=== PATIENT | female | born 1950 | race Caucasian/White ===

== ENCOUNTER → 2017-09-26 15:52 | Outpatient (CLI) | payer MEDICARE, SELFPAY ==
--- NOTE | 2017-09-26 15:55 | BI_ITS ---
MAMMOGRAPHY - BILATERAL SCREENING REASON FOR EXAM: Female, 66 years old. Routine annual screening examination. PERTINENT HISTORY: Sister with breast cancer. TECHNIQUE: Digital bilateral breast mandy (3D mammographic acquisition) in the CC and MLO projections. 2-D mediolateral oblique (MLO) and craniocaudad (CC) views of both breasts were obtained. CAD: Full Field Digital Mammography with Computer Added Detection was performed. COMPARISON: Comparison is made with prior study dated July 26, 2016 and June 01, 2013. FINDINGS: Breast Composition: The breasts are almost entirely fatty. There are no dominant masses or suspicious calcifications. No other significant abnormalities are identified. There has been no significant change since the prior study. BI/SCREENING MAMM (CAD), BILAT IMPRESSION: Stable bilateral screening mammogram. Yearly follow-up mammogram recommended. (A) ASSESSMENT CATEGORY: BIRADS Category 1: Negative. A letter regarding these results will be sent to the patient by the facility within 30 days. Approximately 10% of breast cancers are not detected by mammography. A normal mammogram should not delay biopsy of a clinically suspicious abnormality. [id number] Electronically Signed: Hi Atkinson MD at 15:37 EDT Tel [phone], Service support ,
== END ==
PROVIDERS: Family Provider Nurse Practitioner; PCP Nurse Practitioner; Visit Provider Nurse Practitioner
DX: Z12.31 Encounter for screening mammogram for malignant neoplasm of breast (principal)
CPT/HCPCS: 77063; 77067

== ENCOUNTER → 2018-01-07 11:03 | Outpatient (CLI) | payer MEDICARE, SELFPAY ==
--- NOTE | 2018-01-07 11:04 | RAD_ITS ---
STUDY: X-RAY - RIGHT SHOULDER REASON FOR EXAM: Female, 67 years old. Pain, injury TECHNIQUE: 3 view(s) of the shoulder. COMPARISON: None. FINDINGS: There is osteoarthritis at the acromioclavicular joint. There is no fracture or dislocation. No osseous destruction. RAD/Shoulder min 2 Views IMPRESSION: Osteoarthritis of the acromioclavicular joint Electronically Signed: Nimesh Kumar MD at 22:05 EDT Tel , Service support ,
== END ==
PROVIDERS: Family Provider Nurse Practitioner; PCP Nurse Practitioner; Visit Provider Orthopaedic Surgery
DX: M19.011 Primary osteoarthritis, right shoulder (principal)
CPT/HCPCS: 73030

== ENCOUNTER → 2018-01-21 10:10 | Outpatient (CLI) | payer MEDICARE, SELFPAY ==
--- NOTE | 2018-01-21 10:12 | MRI_ITS ---
STUDY: MRI RIGHT SHOULDER REASON FOR EXAM: Right shoulder pain and decreased range of motion, recent fall. TECHNIQUE: Standardized fat and water weighted pulse sequences were obtained in all 3 orthogonal planes. COMPARISON: Radiographs 01/07/2018. FINDINGS: There is supraspinatus and infraspinatus tendinosis (T2 sagittal images 11-14) without discrete tendon tear. There is a full-thickness tear of the subscapularis tendon retracted approximately 1.1 cm from the lesser tuberosity (T2 axial images 11-14). Normal teres minor tendon. Normal supraspinatus muscle. There is mild atrophy with mild partial fat replacement of the infraspinatus muscle (T2 sagittal images 3-6). Normal subscapularis muscle. Normal teres minor muscle. There is a small glenohumeral joint effusion with fluid extending into the bicipital tendon sheath. Normal humeral head and visualized proximal humerus. Normal biceps labral complex. Normal intracapsular long biceps tendon. Normal labrum. Normal capsulo- ligamentous complex. There is acromioclavicular arthrosis (T2 sagittal image 9). There is a Type I morphology (flat undersurface), with a neutral orientation. There is a small volume of subacromial-subdeltoid bursal fluid. Normal visualized coracohumeral and coracoacromial ligaments. Normal deltoid muscle. Normal trapezius muscle. MRI/Upper Ext Joint Only(Routine) IMPRESSION: Full-thickness tear of the subscapularis tendon. Supraspinatus and infraspinatus tendinosis. Mild atrophy of the infraspinatus muscle. Acromioclavicular arthrosis. Glenohumeral joint fluid communicating with the subacromial-subdeltoid bursa. Electronically Signed: Inderjit Merchant MD at 12:47 EDT Tel , Service support ,
== END ==
PROVIDERS: Family Provider Nurse Practitioner; PCP Nurse Practitioner; Visit Provider Orthopaedic Surgery
DX: M75.101 Unspecified rotator cuff tear or rupture of right shoulder, not specified as traumatic (principal)
CPT/HCPCS: 73221

== ENCOUNTER 2018-03-27 05:57 | Day surgery (SDC) | payer MEDICARE, SELFPAY ==
[2018-03-27] VITALS (7 sets, daily range): BP systolic 109–143; BP diastolic 63–78; PULSE 57–69; RESP 16–20; TEMP 35.7–36.1; O2SAT 89–100; BMI 53.5
--- NOTE | 2018-03-27 06:06 | EKG12_ITS ---
Test Reason : PREOP Blood Pressure : / mmHG Vent. Rate : 064 BPM Atrial Rate : 064 BPM P-R Int : 184 ms QRS Dur : 072 ms QT Int : 400 ms P-R-T Axes : 033 -25 003 degrees QTc Int : 412 ms Normal sinus rhythm Low voltage QRS Inferior infarct , age undetermined Abnormal ECG When compared with ECG of 10-DEC-2006 08:35, MANUAL COMPARISON REQUIRED, DATA IS UNCONFIRMED Confirmed by NICOLE PAYNE, HERMAN ([id number]), manager editorial ASHLEY EARL ([id number]) on 03/31/2018 4:10:30 PM Referred By: Dottie Etienne Confirmed By:HERMAN RIVERA MD
[2018-03-27 06:31] LABS: Hematocrit 42.8 % (37-47); Hemoglobin 15.1 g/dl (12.0-15.0); Mean Corp Hgb Conc 35.3 g/gl (32-36); Mean Corpuscular Hgb 31.5 pg (27.0-32.0); Mean Corpuscular Volume 89.2 fL (81-99); Platelet Count 278 K/mm3 (150-450); RBC Distribution Width CV 12.5 % (11.6-14.6); RBC Distribution Width SD 40.1 fl (35.1-43.9); Scan Indicated on CBC? Y/N NO; White Blood Count 8.7 K/mm3 (4.4-11.0)
[2018-03-27 06:49] LABS: International Normalized Ratio 1.1
[2018-03-27] MEDS: Cefazolin 2 GM in 0.9% Normal Saline 100 ML IV (07:23)
--- NOTE | 2018-03-27 07:40 | DCINST_ITS ---
Discharge Diet: No Restrictions - right shoulder in sling at all times, no active elevation of arm, may flex the elbow, may remove dressings in 4 days and apply bandaids to incision sites and get incision wet at that time, follow up in 2 weeks, call with concerns Discharge Activity: May Not Drive May shower in (days): 1 Ice area for (Minutes): 20 - Every hour while awake. Weight Bearing Status: Weight bearing as tolerated Keep extremity elevated above heart level: Operative Extremity Call your doctor if your incision/area has: Continuous Slow Oozing, Sudden Increased Bleeding, Increased Pain/ Swelling, Increased Redness, Foul Smelling Discharge Call your doctor if you observe: Fever of 101 or Higher, Coldness, Increased Pain, Numbness or Tingling, Change in Color, Calf discomfort Allergies/Adverse Reactions: Allergies egg Allergy (Verified 03/20/18 13:53) Nausea nitrofurantoin macrocrystalline [From Macrodantin] Allergy (Verified 03/20/18 13:53) Other TACHYCARDIA Penicillins [PCN] Allergy (Verified 03/20/18 13:53) Rash Medications to take at Discharge Atenolol 25 mg PO DAILY 02/25/15 Bupropion HCl [Bupropion HCl Sr] 150 mg PO BID 02/25/15 Famotidine 40 mg PO BID 02/25/15 Hydrocodone/Acetaminophen [Vicodin 5-300 mg Tablet] 1 tablet PO Q4H PRN PRN 02/25/15 Losartan Potassium 100 mg PO DAILY 02/25/15 Warfarin Sodium 6 mg PO SUTUTHSA 02/25/15 rosuvastatin 5 mg tablet 5 mg PO DAILY 30 Days #30 03/06/18 Warfarin [Coumadin ([facility])] 5.5 mg PO MOWEFR 03/20/18 Hydrocodone Bitart/Apap 5-325 [[place] 5MG-325MG] 1 - 2 tablet PO Q6H PRN PRN 5 Days #40 tablet 03/27/18 Zolpidem Tartrate [Ambien (Generic)] 5 mg PO QHS PRN PRN #14 tablet 03/27/18 The following prescriptions were given: Hydrocodone Bitart/Apap 5-325 [[place] 5MG-325MG] 1 - 2 tablet PO Q6H PRN PRN 5 Days #40 tablet PRN Reason: Pain Zolpidem Tartrate [Ambien (Generic)] 5 mg PO QHS PRN PRN #14 tablet PRN Reason: Insomnia Primary Care Physician: Cynthia Campbell [Primary Care Provider] - Test Results: Test results from this visit will be discussed in further detail at your follow- up appointment, if applicable. Please Follow Up With: Dottie Etienne, DO - [phone]
[2018-03-27] MEDS: Mupirocin Ointment 22gm Tube 1 APPLIC (10:46)
--- NOTE | 2018-03-27 10:47 | PCM.OPRPT ---
Report of Operation Date of Procedure: 03/27/18 Pre-Operative Diagnosis: right shoulder rotator cuff tear, subacromial impingment, biceps tendinosis Post-Operative Diagnosis: same Surgery/Procedure Performed:: sars, biceps tenotomy, subacromial decompression/acromioplasty, subscap repair and marginal convergence rotator cuff repair of midsubstance supraspinatus tear Type of Anesthesia:: General Anesthesiologist: Sukhdev Avelar Estimated Blood Loss (mL): minimal Fluids Replaced: 1200cc lr Description of Procedure: Preop note Patient is a 67-year-old female with right shoulder pain continued for quite some time after slipping and injuring her arm. Increased pain goes into the arm MRI confirms a full-thickness rotator cuff tear. Wrist benefits alternatives surgery discussed with patient. Risks including but not limited to blood loss, blood clot, infection, neurovascular, failure procedure, loss of life and loss of limb. Patient is felt failed conservative treatment like to proceed with right shoulder arthroscopy repair is indicated. Operative note Patient seen and examined preoperative holding area. Right shoulder was marked. Patient brought to the operating room placed supine on the operating table. Sign, anesthesia, antibiotics were administered. The right shoulder was prepped and draped in usual sterile fashion after beachchair positioning was placed. Please note that senior care through beachchair position we did recheck her blood pressure which was stable throughout. SCDs were placed on her bilateral lower extremity and gel pad was placed underneath her heels all bony possible padded. We then marked out our incision for our standard diagnostic arthroscopy. Timeout was performed. We then insufflated the glenohumeral joint with 60 cc of saline we did have a difficult time initially encountering her joint due to her body habitus. We did however get into the joint were able to visualize the thickened biceps and torn biceps tendon. We then inserted a ablator to resect the thickened biceps. There are no loose bodies in the joint the glenoid joint glenohumeral joint was unremarkable. There is obvious mid substance full-thickness tear of the supraspinatus the leading edge. Patient also had a subscap tear. We then gently released the subscap from the capsule as it was adherent and had good mobility of the subscap and then brought the subscap back down to the lesser after with a 4 5 push lock after debriding the lesser tuberosity insertion. We then moved to the subacromial space created a couple of portals both anterior lateral and lateral we then performed a subacromial decompression and acromioplasty. We then noted because it was a intrasubstance supraspinatus tear that we placed 3 marginal convergence stitches and had good reduction of our rotator cuff back to the interval. The shoulder was then irrigated comes amounts of sterile saline. The portals were closed with interrupted nylon some of the bigger portals were closed with deep Vicryl in a nylon. Again sterile dressings were applied patient placed in sling patient tolerated procedure well there are no complications transferred recovery room in stable condition. Postoperative note Nonweightbearing right arm next Discussed with daughter Follow-up in 2 weeks Pendulums only no active range of motion of shoulder Call with increased pain numbness tingling or further issues arise Pharmacy in [facility] has prescriptions as Dragon disclaimer This note was generated with [employer] dictation software. It may contain incorrect words, spelling, and punctuation that were not noted in checking the note before signing.
--- NOTE | 2018-03-27 10:54 | OP.PCM_ITS ---
Report of Operation Date of Procedure: 03/27/18 Pre-Operative Diagnosis: right shoulder rotator cuff tear, subacromial imp ingment, biceps tendinosis Post-Operative Diagnosis: same Surgery/Procedure Performed:: sars, biceps tenotomy, subacromial decompression/acromioplasty, subscap repair and marginal convergence rotator cuff repair of midsubstance supraspinatus tear Type of Anesthesia:: General Anesthesiologist: Sukhdev Avelar Estimated Blood Loss (mL): minimal Fluids Replaced: 1200cc lr Description of Procedure: Preop note Patient is a 67-year-old female with right shoulder pain continued for quite some time after slipping and injuring her arm. Increased pain goes into the arm MRI confirms a full-thickness rotator cuff tear. Wrist benefits alternatives surgery discussed with patient. Risks including but not limited to blood loss, blood clot, infection, neurovascular, failure procedure, loss of life and loss of limb. Patient is felt failed conservative treatment like to proceed with right shoulder arthroscopy repair is indicated. Operative note Patient seen and examined preoperative holding area. Right shoulder was marked. Patient brought to the operating room placed supine on the operating table. Sign, anesthesia, antibiotics were administered. The right shoulder was prepped and draped in usual sterile fashion after beachchair positioning was placed. Please note that skilled nursing through beachchair position we did recheck her blood pressure which was stable throughout. SCDs were placed on her bilateral lower extremity and gel pad was placed underneath her heels all bony possible padded. We then marked out our incision for our standard diagnostic arthroscopy. Timeout was performed. We then insufflated the glenohumeral joint with 60 cc of saline we did have a difficult time initially encountering her joint due to her body habitus. We did however get into the joint were able to visualize the thickened biceps and torn biceps tendon. We then inserted a ablator to resect the thickened biceps. There are no loose bodies in the joint the glenoid joint glenohumeral joint was unremarkable. There is obvious mid substance full- thickness tear of the supraspinatus the leading edge. Patient also had a subscap tear. We then gently released the subscap from the capsule as it was adherent and had good mobility of the subscap and then brought the subscap back down to the lesser after with a 4 5 push lock after debriding the lesser tuberosity insertion. We then moved to the subacromial space created a couple of portals both anterior lateral and lateral we then performed a subacromial decompression and acromioplasty. We then noted because it was a intrasubstance supraspinatus tear that we placed 3 marginal convergence stitches and had good reduction of our rotator cuff back to the interval. The shoulder was then irrigated comes amounts of sterile saline. The portals were closed with interrupted nylon some of the bigger portals were closed with deep Vicryl in a nylon. Again sterile dressings were applied patient placed in sling patient tolerated procedure well there are no complications transferred recovery room in stable condition. Postoperative note Nonweightbearing right arm next Discussed with daughter Follow-up in 2 weeks Pendulums only no active range of motion of shoulder Call with increased pain numbness tingling or further issues arise Pharmacy in [facility] has prescriptions as Dragon disclaimer This note was generated with [employer] dictation software. It may contain incorrect words, spelling, and punctuation that were not noted in checking the note before signing.
[2018-03-27] MEDS: Bupiv/Epi 0.5% Mpf 30 ML Vial (11:03)
[2018-03-27] MEDS: HYDROcodone Bitartrate/Apap 5/325 Tablet PO (12:35)
== END 2018-03-27 14:06 | disposition home or self-care (01) ==
LOC: SDC 05:57 → AC 05:59
PROVIDERS: Family Provider Nurse Practitioner; PCP Nurse Practitioner; Referring Provider Orthopaedic Surgery; Visit Provider Orthopaedic Surgery
PROC: (CPT 29827; principal; 2018-03-27 07:10)
DX: S46.011A Strain of muscle(s) and tendon(s) of the rotator cuff of right shoulder, initial encounter (principal); W01.0XXA Fall on same level from slipping, tripping and stumbling without subsequent striking against object, initial encounter; M25.811 Other specified joint disorders, right shoulder; M75.21 Bicipital tendinitis, right shoulder; I10 Essential (primary) hypertension; E78.00 Pure hypercholesterolemia, unspecified; K21.9 Gastro-esophageal reflux disease without esophagitis; F33.8 Other recurrent depressive disorders; G47.33 Obstructive sleep apnea (adult) (pediatric); Z86.718 Personal history of other venous thrombosis and embolism; Z79.01 Long term (current) use of anticoagulants; Z79.891 Long term (current) use of opiate analgesic; Z79.899 Other long term (current) drug therapy; Z87.891 Personal history of nicotine dependence
CPT/HCPCS: 29826; 29827; 29828; 36415; 85027; 85610; 93005; J7120; J2405

== ENCOUNTER 2018-07-31 11:00 | Outpatient (RCR) | payer MEDICARE, SELFPAY ==
--- NOTE | 2018-04-14 09:23 | HP.PTEVAL_ITS ---
Patient's Visit Information KATHERINE MATHIS is a 67 year old F referred to Physical Therapy by Dottie Etienne DO with a diagnosis of Massive Right RTC Repair (03/24/18). Date of Evaluation: 04/14/18 Physical Therapist: Debbie Patino - Visit Plan Frequency: 2x /Week Duration: 4 Weeks Plan: SLOW!!!- Massive RTC repair- PROM for 6 weeks (until May 08) and modalities for pain management. - Subjective Subjective: March 27, 2018-left shoulder surgery- fell December 02- tore the RTC in 3 places. Had no external injuries when she fell but she landed on the shoulder. Went home the same day as surgery- Worst pain is a 8/10 Agg:movement, getting dressed. Best: 0/10 Eases: being in her sling. The pain is located mostly now is anterior deltoid and biceps. Describes the pain as the shoulder is being pulled to far in the wrong direction. No N/T in the finger. No increase in blurred vision or FOSTER- does have vertigo occasionally but since the surgery. Does have bouts of nasea- is not taking pain medication currently. Sleep: disturbed- has been sleeping in her left chair- might get 2 hours of sleep and then she moves from the bed to the chair. Fully I before surgery. Patient reports that she is not very active. Has 3 boys that live with them hockey players (16-23)- she is constantly taking care of them- bathroom is upstairs. PMHx: Bilateral TKR, HTN, Pre DM, a-factor blood clots, back pain, sleep apnea. Meds: see list- no changes since hospitalization. Right hand dominate. - Objective Posture: FH, RS, Increased kyphosis- severe guarding of the right UE with a pillow sling. Gait: slow with decreased arm swing and no trunk rotation. Observation: pt is overweight. Palpation: tender along upper trap, medial border of the shoulder blade, bicipital groove and down to the elbow. ROM: Finger dexterity: WNL, Pronation/Supination:WNL, Elbow flexion/ext: WNL. PROM: shoulder: significant guarding of the UE- unable to perform- attempted pendulums and patient was able to relax and demo approx 30 degrees of flexion with passive distraction. Strength: not tested. Patient has significant pain with all motions and is very guarded- will go SLOW! - Goals Goal 1:: Patient will be I with HEP and progression Goal Time Frame: 4-6 Weeks Goal 2:: Patient will demo full AROM in right shoulder where deficit (as per protcol) Goal Time Frame: 4-6 Weeks Goal 3:: Patient will reports 2/10 pain for 1 week Goal Time Frame: 4-6 Weeks - Rehabilitation Potential Physical Therapy Diagnosis: Patient presents with hypomobility- she has decreased ROM, strength and muscular endurance s/p RTC repair. Rehabilitation Potential: Fair - Anticipated Interventions Patient/Client Instruction: Educate patient on: Benefits of Fitness Program Therapeutic Exercise to Include: Strength training, Endurance training, Body mechanics, Postural training, Passive ROM, Active ROM, Scapular Strength/Stabil ization For the Purpose of:: To increase ROM, To improve muscle performance and motor function Manual Therapy Techniques to Include: Passive ROM For the Purpose of:: To increase ROM TENS: Yes Cryotherapy (ice pack, ice massage): Yes Thermo therapy (hot pack): Yes For the Purpose of:: To decrease pain Thank you for the opportunity to evaluate your patient. For Medicare and Medicare HMO plans, please review the plan of care and approve it. It will need to be FAXED BACK to us at [phone] for Medicare purposes. Please let me know if there are questions or concerns regarding this plan of care. Physician Signature: Date:
--- NOTE | 2018-05-15 11:47 | HP.PTREVAL_ITS ---
Dottie Etienne, DO, It has been my pleasure to treat KATHERINE MATHIS over the last 8 visits for Massive Right RTC Repair (03/24/18). Please see the progress note below for an update on the physical therapy plan of care! Subjective: Patient reports that she saw the MD and he was happy with the progress and told her to keep doing therapy. He took her out of the sling. She reports less pain with the sling off. Is able to do more cooking and around her house. Pain depends on what she is doing. Worst: 2/10 with normal activites 7/10 with therapy exercises. Is doing pulleys at home daily- almost like a certain point that catches in the arm. Objective/Function: Posture: FH, RS, increased kyphosis- pt guards the right UE but is no longer wearing the sling. Palpation: tender along medial scapula with pain into the upper trap to the bicipital groove. ROM: Finger dexterity: WNL, Wrist: WNL, Elbow: WNL, AROM: Abd: 40 degrees Flexion: 50 degrees IR: greater troch, ER: 30 degrees, AAROM (pulleys): flexion: 120 degrees- passive not performed secondary to guarding. Strength: isometric: Elbow: 4+/5, Shoulder: 3+ /5 in available range at neutral Plan Plan: Cont with POC 2x a week for 4 weeks- continue to progress with AAROM exercises and add in gentle isometrics Goals Goal 1:: Patient will be I with HEP and progression Goal Time Frame: 4-6 Weeks Goal Progress: Progressing Goal 2:: Patient will demo full AROM in right shoulder where deficit (as per protcol) Goal Time Frame: 4-6 Weeks Goal Progress: Progressing Goal 3:: Patient will reports 2/10 pain for 1 week Goal Time Frame: 4-6 Weeks Goal Progress: Progressing Anticipated Interventions Patient/Client Instruction: Educate patient on: Benefits of Fitness Program Therapeutic Exercise to Include: Strength training, Endurance training, Coordination, Body mechanics, Postural training, Passive ROM, Active ROM, Scapular Strength/Stabilization For the Purpose of:: To increase ROM, To improve muscle performance and motor function Manual Therapy Techniques to Include: Passive ROM For the Purpose of:: To increase ROM TENS: Yes Cryotherapy (ice pack, ice massage): Yes Thermo therapy (hot pack): Yes For the Purpose of:: To decrease pain Please do not hesitate to contact me at [phone] by phone or if you have questions or concerns regarding this new plan of care! Sincerely, Debbie Patino
--- NOTE | 2018-06-26 14:56 | HP.PTREVAL ---
Dottie Etienne, DO, It has been my pleasure to treat KATHERINE MATHIS over the last 14 visits for Massive Right RTC Repair (03/24/18). Please see the progress note below for an update on the physical therapy plan of care! Subjective: The shoulder is doing pretty good- the weather does effect the pain. But since then its been about a week or a week and a half since she has had a lot of pain. She doesn't have the strength in it- but feels like the ROM is getting better. Putting things on behind her back is a challenge. Objective/Function: Posture: FH, RS, increased kyphosis- no guarding of the right UE Palpation: tender along medial scapula with pain into the upper trap to the bicipital groove. ROM: Finger dexterity: WNL, Wrist: WNL, Elbow: WNL, AROM: Abd: 115 degrees Flexion: 130 degrees IR: outside of her back pocket, ER: 50 degrees, Strength: isometric: Elbow: 4+/5, Shoulder: 3+/5 in available range at neutral Plan Plan: Continue 2x a week for 4 weeks for strength training Goals Goal 1:: Patient will be I with HEP and progression Goal Time Frame: 4-6 Weeks Goal Progress: Progressing Goal 2:: Patient will demo full AROM in right shoulder where deficit (as per protcol) Goal Time Frame: 4-6 Weeks Goal Progress: Progressing Goal 3:: Patient will reports 2/10 pain for 1 week Goal Time Frame: 4-6 Weeks Goal Progress: Progressing Anticipated Interventions Patient/Client Instruction: Educate patient on: Benefits of Fitness Program Therapeutic Exercise to Include: Strength training, Endurance training, Coordination, Body mechanics, Postural training, Passive ROM, Active ROM, Scapular Strength/Stabilization For the Purpose of:: To increase ROM, To improve muscle performance and motor function Manual Therapy Techniques to Include: Passive ROM For the Purpose of:: To increase ROM TENS: Yes Cryotherapy (ice pack, ice massage): Yes Thermo therapy (hot pack): Yes For the Purpose of:: To decrease pain Please do not hesitate to contact me at [phone] by phone or if you have questions or concerns regarding this new plan of care! Sincerely, Debbie Patino DPT
--- NOTE | 2018-09-18 16:48 | HP.PTDCNRP_ITS ---
HP - Discharge Summary (1) - Patient Information KATHERINE MATHIS was seen in my office for initial evaluation on 04/14/18. The following Plan of Care was established for this patient: Initial Frequency: 2x /Week Initial Duration: 4 Weeks - Anticipated Interventions Patient/Client Instruction: Educate patient on: Benefits of Fitness Program Therapeutic Exercise to Include: Strength training, Endurance training, Circle Edger rdination, Body mechanics, Postural training, Passive ROM, Active ROM, Scapular Strength/Stabilization For the Purpose of:: To increase ROM, To improve muscle performance and motor function Manual Therapy Techniques to Include: Passive ROM For the Purpose of:: To increase ROM TENS: Yes Cryotherapy (ice pack, ice massage): Yes Thermo therapy (hot pack): Yes For the Purpose of:: To decrease pain This patient was last seen in our office . Pertinent comments regarding their Physical therapy will appear below: Patient made excellent progress in therapy and is I with HEP. At this point I will be discontinuing this patient from physical therapy. I would be happy to see this patient again in the future if found appropriate by the physician. Thank you! Debbie Patino DPT
== END 2018-07-31 19:00 | disposition home or self-care (01) ==
LOC: PT 11:00
PROVIDERS: Family Provider Nurse Practitioner; PCP Nurse Practitioner; Referring Provider Orthopaedic Surgery; Visit Provider Orthopaedic Surgery
DX: Z98.890 Other specified postprocedural states (principal)
CPT/HCPCS: 97110; 97140; 97161; 97164

== ENCOUNTER → 2018-10-14 15:50 | Outpatient (CLI) | payer MEDICARE, SELFPAY ==
--- NOTE | 2018-10-14 15:56 | RAD_ITS ---
HISTORY: low back pain with history of previous lumbar spine facet joint injection COMPARISON: Limited Lumbar spine with C-arm fluoroscopy 05/02/2015 FINDINGS: XR lumbar spine 5 views Lumbar mild levoscoliosis which measures approximately 13 with the apex of the curve at the L2 level. Lumbar vertebral appear normal in height. No fracture or acute osseous abnormality. Diffuse narrowing of the lumbar disc spaces, greatest at the L1-2, L2-3, and L5-S1 levels. Multilevel marginal endplate spurring, degenerative vacuum disc phenomenon, and reactive endplate sclerosis. Long segment marginal osteophytosis of the lower dorsal and upper lumbar spine as seen with benign changes of DISH. L5-S1 facet joint arthritis, worse on the left. No spondylolisthesis. SI joints are grossly preserved. Numerous pelvic phleboliths. Several stones measuring approximately 9 mm and 7 mm in maximal dimension, respectively, at the lower pole of the left kidney. Atherosclerotic abdominal aorta. RAD/L/S Spine Min 4 Views IMPRESSION: 1. No fracture or acute osseous abnormality. 2. Lumbar spine mild scoliosis and multilevel spondylosis and advanced degenerative disc disease. L5-S1 facet joint arthritis on the left. 3. At least 2 left renal stones and these are a potential source for reported low back pain. 4. Additional chronic changes, as above. at 0103 Reported and signed by: Vincenzo Price MD Electronically Signed: Vincenzo Price, at 1:02 EDT Tel , Service support ,
== END ==
PROVIDERS: Family Provider Nurse Practitioner; PCP Nurse Practitioner; Referring Provider Anesthesiology Pain Medicine; Visit Provider Anesthesiology Pain Medicine
DX: M51.37 Other intervertebral disc degeneration, lumbosacral region (principal); M43.16 Spondylolisthesis, lumbar region
CPT/HCPCS: 72110

== ENCOUNTER 2018-11-03 08:01 | Day surgery (SDC) | payer MEDICARE, SELFPAY ==
[2018-11-03] VITALS (7 sets, daily range): BP systolic 112–136; BP diastolic 57–74; PULSE 64–66; RESP 16–18; TEMP 36.1–36.3; O2SAT 98–100; BMI 55.8
[2018-11-03 08:50] LABS: Prothrombin Time Fingerstick 11.9 SEC (11.9-14.4)
--- NOTE | 2018-11-03 09:10 | RAD_ITS ---
PROCEDURE: Right L3-S1 facet joint block. DATE OF EXAMINATION: November 03, 2018. INDICATION: Female, 67 years old. Chronic low back pain. FLUOROSCOPY TIME (if supplied): (0:18) minutes/seconds Intraoperative imaging provided for right L3-S1 facet joint block. RAD/L/S Spine Min 4 Views IMPRESSION: Intraoperative imaging provided for right L3-S1 facet joint block. Electronically Signed: Hi Atkinson, at 15:04 EDT , Service support ,
[2018-11-03] MEDS: Bupivacaine 0.25% 30 ML Vial (09:22)
[2018-11-03] MEDS: MethylPREDNISolone Acetate 80 MG/ML Vial (09:22)
--- NOTE | 2018-11-03 13:53 | OP.PCM_ITS ---
Problem List (1) Degeneration of lumbar or lumbosacral intervertebral disc Status: Chronic (2) Spondylosis of lumbosacral region without myelopathy or radiculopathy Status: Chronic Report of Operation Date of Procedure: 11/03/18 Pre-Operative Diagnosis: Lumbosacral spondylosis, lumbosacral degenerative disc disease, lumbar facet arthropathy Post-Operative Diagnosis: Lumbosacral spondylosis, lumbosacral degenerative disc disease, lumbar facet arthropathy Surgery/Procedure Performed:: Right sided lumbar facet steroid injection L3, L4, L5, S1 Description of Surgical Findings:: Right-sided lumbar facet steroid injection L3, L4, L5, S1 PREOPERATIVE DIAGNOSIS: Lumbosacral spondylosis, lumbosacral degenerative disc disease, and lumbar facet arthropathy POSTOPERATIVE DIAGNOSIS: Lumbosacral spondylosis, lumbosacral degenerative disc disease, and lumbar facet arthropathy ANESTHESIA: MAC COMPLICATIONS: None BLOOD LOSS: Minimal PROCEDURE IN DETAIL: History and physical today was reviewed. Risks and benefits of the procedure were explained. The patient understood, agreed to our procedure, and informed consent was obtained. IV inserted per routine protocol. The patient was taken to the operating room, placed in a prone position with a pillow positioned underneath the abdomen. The right side of the lower back was prepped and draped in a sterile fashion using iodine x3. Under fluoroscopy guidance, on AP view, L3 through S1 vertebral bodies were visualized. Skin and subcutaneous tissues were anesthetized with approximately 5 mL of 1% lidocaine using a 25-gauge regular needle. Under direct visualization with fluoroscopy at approximately 25-degree angle, starting on the right L3, ending on the right S1, passing through the L4-L5 using a 22-gauge 5 inch spinal needle, the needle was advanced via the skin. The tip of the needle was maneuvered and directed towards the superior and medial gutter of the transverse process at the vicinity of the medial branch. Once the tip of the needle was in contact with the bone, the needle pulled approximately 2 mm off the bone. After negative aspiration of blood with CSF and confirmation of AP as well as oblique view, a total of 8 mL of preservative-free 0.25% Marcaine with 80 mg of Depo- Medrol was injection in divided doses between those 4 levels. The needles were then removed intact. The patient experienced no signs or symptoms intrathecal, intravascular injection. The patient experienced no paraesthesia. The procedure was completed without any apparent difficult, any complication. The patient appeared to tolerate well. ASSESSMENT AND PLAN: This is a 67-year-old Female with Lumbosacral spondylosis, lumbosacral degenerative disc disease, and lumbar facet arthropathy, status post right-sided lumbar facet steroid injection L3 through S1. The patient will continue her current medications. The patient will follow in approximately 2 weeks for reevaluation.
== END 2018-11-03 10:43 | disposition home or self-care (01) ==
LOC: SDC 08:02 → AC 08:05
PROVIDERS: Family Provider Nurse Practitioner; PCP Nurse Practitioner; Referring Provider Anesthesiology Pain Medicine; Visit Provider Anesthesiology Pain Medicine
PROC: 3E0T3BZ Introduction of Anesthetic Agent into Peripheral Nerves and Plexi, Percutaneous Approach (ICD-10-PCS; CPT 64493; principal; 2018-11-03 09:05)
DX: M47.817 Spondylosis without myelopathy or radiculopathy, lumbosacral region (principal); M51.37 Other intervertebral disc degeneration, lumbosacral region; M46.96 Unspecified inflammatory spondylopathy, lumbar region; K21.9 Gastro-esophageal reflux disease without esophagitis; E78.00 Pure hypercholesterolemia, unspecified; F32.9 Major depressive disorder, single episode, unspecified; I10 Essential (primary) hypertension; E66.01 Morbid (severe) obesity due to excess calories; Z68.43 Body mass index [BMI] 50.0-59.9, adult; Z79.01 Long term (current) use of anticoagulants; Z79.891 Long term (current) use of opiate analgesic; Z86.718 Personal history of other venous thrombosis and embolism; Z79.899 Other long term (current) drug therapy; Z87.891 Personal history of nicotine dependence
CPT/HCPCS: 01922; 64493; 64494; 64495; 36416; 64483; 72110; 85610; J7120

== ENCOUNTER 2018-12-01 08:53 | Day surgery (SDC) | payer MEDICARE, SELFPAY ==
[2018-11-03 08:23] VITALS: BMI 55.8
[2018-12-01 09:21] LABS: Prothrombin Time Fingerstick 12.5 SEC (11.9-14.4)
[2018-12-01 09:26] VITALS: BP 113/75; PULSE 68; RESP 16; TEMP 36.4; O2SAT 96; BMI 56.8
--- NOTE | 2018-12-01 10:20 | RAD_ITS ---
PROCEDURE: Caudal block. DATE OF EXAMINATION: December 01, 2018. INDICATION: Female, 68 years old. Chronic low back pain. FLUOROSCOPY TIME (if supplied): (0:15) minutes/seconds. 2 spot views were obtained. RAD/Fluor Guidance for Spine Inj IMPRESSION: Intraoperative imaging provided for caudal block. Electronically Signed: Hi Atkinson, at 13:16 EDT , Service support ,
[2018-12-01] MEDS: Bupivacaine 0.25% 30 ML Vial (10:40)
[2018-12-01] MEDS: MethylPREDNISolone Acetate 80 MG/ML Vial (10:40)
[2018-12-01 10:45] VITALS: BP 111/90; BP 113/75; PULSE 68; RESP 14; TEMP 37.1; O2SAT 96
[2018-12-01 10:50] VITALS: BP 113/75; BP 116/79; PULSE 69; RESP 18; O2SAT 98
[2018-12-01 10:55] VITALS: BP 113/75; BP 117/74; PULSE 65; RESP 18; O2SAT 97
[2018-12-01 11:01] VITALS: BP 113/75; BP 133/60; PULSE 68; RESP 18; TEMP 36.8; O2SAT 100
[2018-12-01 11:36] VITALS: BP 113/75
--- NOTE | 2018-12-01 11:58 | PCM.OPRPT ---
Problem List (1) Radiculopathy of lumbosacral region Status: Chronic (2) Spinal stenosis of lumbosacral region Status: Chronic (3) Degeneration of lumbar or lumbosacral intervertebral disc Status: Chronic Report of Operation Date of Procedure: 12/01/18 Pre-Operative Diagnosis: Lumbosacral radiculopathy, lumbosacral degenerative disc disease, lumbosacral spinal stenosis Post-Operative Diagnosis: Lumbosacral radiculopathy, lumbosacral disc disease, lumbosacral spinal stenosis Surgery/Procedure Performed:: Caudal epidural steroid injection Description of Surgical Findings:: PROCEDURE: Caudal epidural steroid injection PREOPERATIVE DIAGNOSIS: Lumbosacral radiculopathy, lumbosacral degenerative disc disease, lumbosacral spinal stenosis POSTOPERATIVE DIAGNOSIS: Lumbosacral radiculopathy, lumbosacral degenerative disc disease, lumbosacral spinal stenosis ANESTHESIA: MAC COMPLICATIONS: None BLOOD LOSS: Minimal PROCEDURE IN DETAIL: History and physical today was reviewed. Risks and benefits of the procedure were explained. The patient understood, agreed to our procedure, and informed consent was obtained. IV inserted per routine protocol. The patient was taken to the operating room, placed in a prone position with a pillow positioned underneath the abdomen. The lower back and tailbone area was prepped and draped in a sterile fashion using iodine ?3 under fluoroscopy guidance on the lateral view the caudal space was identified the skin and subcutaneous tissue and size approximately 3 cc of 1% lidocaine using a 25-gauge regular needle under direct visualization fluoroscopy using the lateral approach using a 22-gauge 3-1/2 inch spinal needle the needle was advanced via the skin through the sacral hiatus, tip of the needle passed through the sacrococcygeal ligament advanced approximately S4 area after negative aspiration for blood or CSF a total of 3 cc of contrast were injected to confirm correct placement of the needle as well as cephalad spread the spread was followed to approximately L5 area after confirmation AP as well as lateral view repeated negative aspiration a total of 15 cc of preservative-free 0.125% Marcaine with 80 mg of the portal was injected easily. The needles were then removed intact. The patient experienced no signs or symptoms intrathecal, intravascular injection. The patient experienced no paraesthesia. The procedure was completed without any apparent difficult, any complication. The patient appeared to tolerate well. ASSESSMENT AND PLAN: This is a 68-year-old female with lumbosacral radiculopathy, lumbosacral degenerative disc disease, lumbosacral spinal stenosis status post caudal epidural steroid injection. The patient will continue her current medications. The patient will follow in approximately 2 weeks for reevaluation.
== END 2018-12-01 11:37 | disposition home or self-care (01) ==
LOC: SDC 08:53 → AC 08:55
PROVIDERS: Family Provider Nurse Practitioner; PCP Nurse Practitioner; Referring Provider Anesthesiology Pain Medicine; Visit Provider Anesthesiology Pain Medicine
PROC: 3E0S3BZ Introduction of Anesthetic Agent into Epidural Space, Percutaneous Approach (ICD-10-PCS; CPT 62282; principal; 2018-12-01 10:15)
DX: M51.17 Intervertebral disc disorders with radiculopathy, lumbosacral region (principal); M48.07 Spinal stenosis, lumbosacral region; K21.9 Gastro-esophageal reflux disease without esophagitis; E78.00 Pure hypercholesterolemia, unspecified; F32.9 Major depressive disorder, single episode, unspecified; R73.03 Prediabetes; I10 Essential (primary) hypertension; G47.30 Sleep apnea, unspecified; E66.01 Morbid (severe) obesity due to excess calories; Z68.43 Body mass index [BMI] 50.0-59.9, adult; Z79.891 Long term (current) use of opiate analgesic; Z87.891 Personal history of nicotine dependence; Z86.718 Personal history of other venous thrombosis and embolism; Z79.01 Long term (current) use of anticoagulants
CPT/HCPCS: 62323; 36416; 76000; 77003; 85610; J7120; J3490

== ENCOUNTER → 2021-01-24 13:25 | Outpatient (CLI) | payer MEDICARE, SELFPAY ==
--- NOTE | 2021-01-24 13:27 | BI_ITS ---
MAMMOGRAPHY - BILATERAL SCREENING REASON FOR EXAM: Female, 70 years old. Routine annual screening examination. PERTINENT HISTORY: Sister with breast cancer. TECHNIQUE: Digital bilateral breast leandro (3D mammographic acquisition) in the CC and MLO projections. 2-D mediolateral oblique (MLO) and craniocaudad (CC) views of both breasts were obtained. CAD: Full Field Digital Mammography with Computer Added Detection was performed. COMPARISON: Comparison is made with prior study dated 09/26/2017 and 07/26/2016. FINDINGS: Breast Composition: The breasts are almost entirely fatty. There are no dominant masses or suspicious calcifications. No other significant abnormalities are identified. There has been no significant change since the prior study. BI/SCRN MAMM (CAD)W/LEANDRO BILAT IMPRESSION: Stable bilateral screening mammogram. Yearly follow-up mammogram recommended. (A) ASSESSMENT CATEGORY: BIRADS Category 1: Negative. A letter regarding these results will be sent to the patient by the facility within 30 days. Approximately 10% of breast cancers are not detected by mammography. A normal mammogram should not delay biopsy of a clinically suspicious abnormality. [id number] Electronically Signed: Hi Atkinson MD at 14:28 EDT , Service support ,
--- NOTE | 2021-01-24 13:30 | BD_ITS ---
STUDY: DUAL ENERGY X-RAY ABSORPTIOMETRY / DXA REASON FOR EXAM: Female, 70 years old. [id number]. The patient is postmenopausal. TECHNIQUE: Bone Mineral Density (BMD) measurements of lumbar spine and bilateral hips were obtained. COMPARISON: Comparison is made with prior examination dated 07/26/2016. FINDINGS: Lumbar Spine (L1-L4): g/cm2 (1.389) / T-score (3.1) / Z-score (5.3) Findings are suggestive of normal bone density with a low fracture risk. Left Femur Total: g/cm2 (1.128) / T-score (1.5) / Z-score (3.2) Left Femoral Neck: g/cm2 (0.780) / T-score (0.6) / Z-score (1.3) Right Femur Total: g/cm2 (1.017) / T-score (0.6) / Z-score (2.2) Right Femoral Neck: g/cm2 (0.801) / T-score (-0.4) / Z-score (1.5) The T-Scores on the most recent prior examination were: Lumbar Spine (L1-L4): There has been worsening of bone density since the previous examination. Left Femur Total: which represents an improvement of 6.7%. Right Femur Total: which represents an improvement of 12.8%. BD/Dexa Bone Density Study IMPRESSION: The patient is considered normal as outlined below according to World Anand Organization (WHO) criteria with a low fracture risk. There has been improvement of bone density since the previous examination. Reference Information: The T-score is the number of standard deviations above or below the standard which is normal for young adults at their peak bone mineral density. The World Health Organization (WHO) interprets the T-scores as follows: Above -1 Normal bone density Between -1 and -2.5 Osteopenia Equal to / or below -2.5 Osteoporosis As a practical clinical guideline, osteopenia may be graded as follows: Mild -1 through -1.5 Moderate -1.6 through -2.0 Severe -2.1 through -2.4 The Z-score is the number of standard deviations above or below age-matched controls. A Z-score of less than -1.5 would be considered abnormal. References: 1. NIH Osteoporosis and Related Bone Diseases www osteo.org 2. International Society for Clinical Densitometry www iscd.org 3. National Osteoporosis Foundation www nof.org Electronically Signed: Hi Atkinson MD at 19:55 EDT , Service support ,
== END ==
PROVIDERS: PCP Nurse Practitioner; Referring Provider Nurse Practitioner; Visit Provider Nurse Practitioner
DX: Z78.0 Asymptomatic menopausal state (principal); Z12.31 Encounter for screening mammogram for malignant neoplasm of breast
CPT/HCPCS: 77063; 77067; 77080

== ENCOUNTER → 2021-02-28 12:34 | Outpatient (CLI) | payer MEDICARE, SELFPAY ==
--- NOTE | 2021-02-28 12:36 | CT_ITS ---
STUDY: CT ABDOMEN AND PELVIS WITHOUT CONTRAST REASON FOR EXAM: Female, 70 years old. HEMATURIA RADIATION DOSAGE (If Supplied By Facility): CTDIvol = ( 28.09 ) mGy, DLP = ( 1355.55 ) mGycm TECHNIQUE: Transaxial images were obtained from the dome of the diaphragm to the symphysis pubis without oral contrast, and without intravenous contrast. Sagittal and coronal images were reconstructed. Individualized dose optimization techniques were used for this CT. COMPARISON: None. FINDINGS: The visualized lung bases are unremarkable. Coronary artery calcification. Normal liver. The patient is status post cholecystectomy. Normal spleen. Normal pancreas. Normal bilateral adrenal glands. Normal right kidney. There is a 1.7 cm x 0.9 cm calculus in the left renal pelvis. There is also evidence of a 7.1 mm calculus in the midpole calyx of the left kidney. The patient is status post gastric bypass surgery. Normal small intestine. There are multiple colonic diverticula consistent with diverticulosis. Patient is status post appendectomy. There is diffuse atherosclerotic calcification of the abdominal aorta, without a demonstrated aneurysm. Normal inferior vena cava. Normal retroperitoneum. Normal urinary bladder. There is a small umbilical hernia containing fat. There are diffuse degenerative changes of the visualized lumbar spine. CT/Abdomen/Pelvis without Cont IMPRESSION: 1.7 cm x 0.9 cm focus in the left renal pelvis. There is also evidence of a 7.1 mm cuts in the mid pole calyx of the left kidney. Electronically Signed: Hi Atkinson MD at 13:11 EDT , Service support ,
== END ==
PROVIDERS: PCP Nurse Practitioner; Referring Provider Internal Medicine; Visit Provider Internal Medicine
DX: R31.9 Hematuria, unspecified (principal)
CPT/HCPCS: 74176

== ENCOUNTER 2021-03-27 11:36 | Day surgery (SDC) | payer MEDICARE, SELFPAY ==
[2021-03-27] VITALS (10 sets, daily range): BP systolic 125–150; BP diastolic 61–83; PULSE 55–64; RESP 14–18; TEMP 36.1–36.4; O2SAT 94–100; BMI 54.1
--- NOTE | 2021-03-27 11:44 | HP.PCM_ITS ---
HPI - General HPI Narrative KATHERINE MATHIS, is a 70 F who presents for left ureteral stent insertion and left renal extracorporeal shockwave lithotripsy. Informed consent was obtained. [facility] Medical History (Updated 03/27/21 @ 11:[address] Chioma Johnson MD) Arthritis Back pain CPAP (continuous positive airway pressure) dependence Depression DVT (deep venous thrombosis) Easy bruising Excessive bleeding Factor V Leiden Former smoker Gastric reflux High cholesterol History of edema History of epidural anesthesia History of irregular heartbeat History of stress test History of ulceration Hypertension Left renal stone Restless legs Sleep apnea Wears dentures Wears glasses Home Medications Atenolol 25 mg PO DAILY 02/25/15 [History Last Taken 11/03/18 25 MG] Losartan Potassium 100 mg PO DAILY 02/25/15 [History Last Taken 11/03/18 100 MG] bupropion HCl 300 mg PO DAILY 02/25/15 [History Last Taken Unknown] famotidine 40 mg PO BID 02/25/15 [History Last Taken 11/03/18] hydrocodone-acetaminophen [Vicodin 5-300 mg Tablet] 1 tab PO Q4H PRN PRN 02/25/15 [History Last Taken Unknown] warfarin 7 mg PO SUMOWETHFR 02/25/15 [History Last Taken 03/21/21] warfarin [Coumadin (PBKC)] 6.5 mg PO TUSA 03/20/18 [History Last Taken 03/21/21] Allergy/AdvReac Type Severity Reaction Status Date / Time egg Allergy Nausea Verified 03/22/21 13:59 nitrofurantoin Allergy Other Verified 03/22/21 13:59 macrocrystalline [From Macrodantin] Penicillins [PCN] Allergy Rash Verified 03/22/21 13:59 Surgical History History of carpal tunnel surgery of left wrist History of carpal tunnel surgery of right wrist History of gastric stapling Hx laparoscopic cholecystectomy Hx of appendectomy Hx of right knee surgery Hx of shoulder replacement Hx of total knee replacement Social History Smoking Status: Former smoker ROS Constitutional Constitutional: Denies change in weight, chills, fever(s) or lethargy Eyes Eyes: Denies change in vision ENT HEENT: Denies abnormal hearing, dysphagia or loss taste/smell Cardiovascular Cardiovascular: Denies chest pain, diaphoresis, dyspnea, nausea or vomiting Respiratory/Chest Respiratory/Chest: Denies cough, dyspnea, inability to speak or wheezing Gastrointestinal Gastrointestinal: Denies abdominal pain or change in stool character Genitourinary Genitourinary: Reports low back pain; Denies abdominal discomfort or anuria Musculoskeletal Musculoskeletal: Reports systems reviewed and no addt'l complaints, except as documented Integumentary Integumentary: Denies erythema, pruritus or rash Neurologic Neurologic: Denies abnormal gait, abnormal movements, abnormal speech or behavior changes Psychiatric Psychiatric: Reports systems reviewed and no addt'l complaints, except as doc umented Endocrine Endocrinology: Reports systems reviewed and no addt'l complaints, except as documented Hematologic/Lymphatic Hematologic/Lymphatic: Reports systems reviewed and no addt'l complaints, except as documented Allergic/Immunologic Allergic/Immunologic: Reports systems reviewed and no addt'l complaints, except as documented Physical Exam Const alert, oriented x3 and no apparent distress General Appearance: cooperative and comfortable HEENT normocephalic and head/scalp atraumatic Nose: external nose normal External Ear: external ears normal Mouth: lips normal Eyes General Eye: normal appearance of both eyes Neck supple General: trachea midline Lymph Lymphatic: no lymphedema noted Chest Chest: symmetrical chest wall rise Resp normal respiratory effort, normal air movement and no retractions Effort and Inspection: able to speak in complete sentences and symmetric chest movement Cardio regular rate and regular rhythm GI soft to palpation and non-tender no CVA tenderness Back/Spine General Back: CVA tenderness Extremity normal to inspection Skin no rashes or lesions noted, no wounds, skin turgor normal, no jaundice, no petechiae and no mottling Neuro oriented x3 and CN's II-XII intact bilaterally Psych mental status grossly normal, thought process normal, cooperative and affect normal Assessment & Plan Assessment/Plan (1) Left renal stone: PLAN: cystoscopy, left ureteral stent insertion, left renal extracorporeal shockwave lithotripsy. informed consent obtained
[2021-03-27 12:11] LABS: INR Fingerstick 1.1; Prothrombin Time Fingerstick 13.5 SEC (11.9-14.4)
[2021-03-27] MEDS: Lactated Ringers 1,000 ML 100 ML IV (12:31)
[2021-03-27] MEDS: Ciprofloxacin 400 MG/200 ML BAG 200 MG IV (13:10)
--- NOTE | 2021-03-27 13:19 | OP.PCM_ITS ---
Problems Associated Problem List Diagnoses (1) Left renal stone: Report of Operation Date of Procedure: 03/27/21 Pre-Operative Diagnosis: Left renal stone Post-Operative Diagnosis: Same Surgery/Procedure Performed:: Cystoscopy, left ureteral stent insertion, left renal extracorporal shockwave lithotripsy Surgeon: Chioma Johnson Type of Anesthesia: General Grafts/Implants Used: 6 x 24 JJ stent Complications The patient is a 70-year-old female identified as having a large left renal calculus on CT scan now presents for definitive management with a stent insertion and extracorporal shockwave lithotripsy. Informed consent was obtained. The patient was taken the operating room and placed on the operating room table. Anesthesia monitored the head, neck, airway, IV access and vital signs throughout the case. Once anesthesia was appropriately administered she was placed into dorsal lithotomy position was prepped and draped in usual sterile fashion. The cystoscope was inserted through the urethra under direct visualization into the urinary bladder. The bladder mucosa was visualized in its entirety revealing no evidence of mass, erythema or lesion. The left ureteral orifice was carefully intubated with a 0.035 Glidewire which easily passed above the renal calculus. A 6 Mont[place]gr[place] 24 cm JJ stent was then placed over the wire with good curling in the renal pelvis as well as the urinary bladder. At this time the patient's bladder was emptied and the cystoscope was removed. The lithotripter was then aligned with the stone and 3000 shocks were applied to the stone. The stone appeared to be well fragmented at the conclusion of the case. The patient was awakened and taken to recovery room in good condition. There were no complications during this procedure. Admit VTE Documentation VTE Present on Admission: Yes VTE Mechan Device Prophylaxis: SCD's VTE Pharm Prophylaxis ordered?: Yes
--- NOTE | 2021-03-27 13:24 | PCM.DC ---
Discharge Instructions Diet Discharge Diet: No restrictions Activity Discharge Activity: Return to Normal Activity May resume sexual activity in: No Restrictions Dressing / Incision Call your doctor if you observe: Fever of 101 or Higher, Inability to urinate, Inability to have a bowel movement and Uncontrolled pain Follow Up Care Please Follow Up With: Chioma Johnson MD When: in 2-3 weeks with KUB prior Test Results: Test results from this visit will be discussed in further detail at your follow-up appointment, if applicable. Discharge Plan Admission Attending Provider: Chioma Johnson Primary Care Provider: Cynthia Campbell NP Discharge Orders/Prescriptions Prescriptions: New oxycodone-acetaminophen [oxycodone-acetaminophen] 1 TABLET tablet 2 tab PO Q8H PRN PRN (Reason: Pain) 7 Days Qty: 20 RF: 0 cephalexin [cephalexin] 500 MG capsule 500 mg PO Q12 3 Days Qty: 6 RF: 0 phenazopyridine [Pyridium] 200 MG tablet 200 mg PO TID PRN PRN (Reason: Bladder Spasms) 7 Days Qty: 30 RF: 0 Continued Atenolol 25 MG tablet 25 mg PO DAILY RF: 0 bupropion HCl 150 MG tablet sustained-release 12 hr 300 mg PO DAILY RF: 0 famotidine 40 MG tablet 40 mg PO BID RF: 0 warfarin 1 MG tablet 7 mg PO SUMOWETHFR RF: 0 hydrocodone-acetaminophen [Vicodin] 1 EACH tablet 1 tab PO Q4H PRN PRN (Reason: Pain) RF: 0 Losartan Potassium 100 MG tablet 100 mg PO DAILY RF: 0 warfarin [Jantoven] 5 MG tablet 6.5 mg PO TUSA RF: 0 Referrals / Follow Up: Cynthia Campbell NP, [employer] [Primary Care Provider] - Disposition Disposition (needs filled in before D/C Order can be placed): Home, Self Care
== END 2021-03-27 17:11 | disposition home or self-care (01) ==
LOC: SDC 11:38 → AC 11:41
PROVIDERS: PCP Nurse Practitioner; Referring Provider Urology; Visit Provider Urology
PROC: (CPT 50590; principal; 2021-03-27 13:00)
DX: N20.0 Calculus of kidney (principal); D68.51 Activated protein C resistance; Z87.891 Personal history of nicotine dependence; E78.00 Pure hypercholesterolemia, unspecified; G25.81 Restless legs syndrome; G47.30 Sleep apnea, unspecified; M19.90 Unspecified osteoarthritis, unspecified site; I10 Essential (primary) hypertension; K21.9 Gastro-esophageal reflux disease without esophagitis; Z79.01 Long term (current) use of anticoagulants; Z86.718 Personal history of other venous thrombosis and embolism; Z79.899 Other long term (current) drug therapy
CPT/HCPCS: 00873; 50590; 52332; 36416; 85610; 87426; C9803; J7120; C2617; J0744; J2405

== ENCOUNTER → 2021-03-31 10:44 | Outpatient (CLI) | payer MEDICARE, SELFPAY ==
--- NOTE | 2021-03-31 10:47 | RAD_ITS ---
EXAM: XR ABDOMEN, 1 VIEW : 1950 CLINICAL INDICATION: KUB- KIDNEY STONE TECHNIQUE: Frontal supine view of the abdomen/pelvis. This report was created using Exec report generation technology. COMPARISON: CT from 02/28/21 FINDINGS: LOWER THORAX: No acute pathology. GASTROINTESTINAL TRACT: Unremarkable. Non-obstructive. No bowel or stomach distention. ORGANS: Unremarkable as visualized. No organomegaly. No abnormal calcifications. BONES/JOINTS: No acute pathology. SOFT TISSUES: No acute pathology. CALCIFICATIONS: 3 mm density adjacent to the distal aspect of the stent in the expected location of the UVJ. Multiple pelvic vein phleboliths. TUBES, LINES AND DEVICES: Left double-J ureteral stent in place. RAD/Abdomen Single View IMPRESSION: 1. Left double-J ureteral stent in place. 2. 3 mm density adjacent to the distal aspect of the stent in the expected location of the UVJ . This may represent a small stone fragment. at 0710 Reported and signed by: Tono Hayden MD Electronically Signed: Tono Hayden MD at 7:09 EDT Tel , Service support ,
== END ==
PROVIDERS: PCP Nurse Practitioner; Referring Provider Urology; Visit Provider Urology
DX: N20.0 Calculus of kidney (principal)
CPT/HCPCS: 74018

== ENCOUNTER → 2021-04-13 11:07 | Outpatient (CLI) | payer MEDICARE, SELFPAY ==
--- NOTE | 2021-04-13 11:09 | RAD_ITS ---
STUDY: X-RAY - ABDOMEN/PELVIS REASON FOR EXAM: Female, 70 years old. RENAL CALC TECHNIQUE: Single AP view of the abdomen / pelvis. COMPARISON: 03/31/2021 FINDINGS: Normal visualized lung bases. There is an unremarkable bowel gas pattern. Left-sided ureteral stent. No change in the 6 mm calcific opacity projecting over the lower pole left kidney consistent with left renal stone. No definite ureteral stone. Normal soft tissue structures. Normal visualized osseous structures. RAD/Abdomen Single View IMPRESSION: Left ureteral stent. No definite ureteral stone. Electronically Signed: Ina Durham MD at 9:21 EDT Tel , Service support ,
== END ==
PROVIDERS: PCP Nurse Practitioner; Referring Provider Urology; Visit Provider Urology
DX: N20.0 Calculus of kidney (principal)
CPT/HCPCS: 74018

== ENCOUNTER → 2021-04-19 16:52 | Outpatient (CLI) | payer MEDICARE, SELFPAY ==
--- NOTE | 2021-04-19 16:55 | CT_ITS ---
STUDY: CT ABDOMEN AND PELVIS WITHOUT CONTRAST REASON FOR EXAM: Female, 70 years old. STONES RADIATION DOSAGE (If Supplied By Facility): CTDIvol = ( 22.71 ) mGy, DLP = ( 1096.05 ) mGycm TECHNIQUE: Transaxial images were obtained from the dome of the diaphragm to the symphysis pubis without oral contrast, and without intravenous contrast. Sagittal and coronal images were reconstructed. Individualized dose optimization techniques were used for this CT. COMPARISON: February 28, 2021 CT scan abdomen and pelvis FINDINGS: There is trace right lower lobe atelectasis. There are coronary calcifications. Normal liver. There is non-visualization of the gallbladder, which may be secondary to either contraction or a prior cholecystectomy. Normal spleen. Normal pancreas. Normal bilateral adrenal glands. There is right renal atrophy. There is right renal cortical thinning. The right kidney measures 6.5 x 4.9 cm. There is left renal atrophy. The left kidney measures 5.7 x 6.6 cm. There is left renal cortical thinning. The mid pole of the left kidney there is a calcification measuring 9.9 mm. There is a left-sided double-J stent in a decompressed left ureter. There is no visualized stones along the course of the left ureter. There is a distended appearance of the stomach with postoperative change. Normal small intestine. There is mild to moderate stool in the colon. There is non-visualization of the appendix. The aorta is partially calcified. Normal inferior vena cava. Normal retroperitoneum. The bladder is partially decompressed is a left-sided Mac catheter. Uterus is mildly atrophied. There is a small umbilical hernia containing fat. There are diffuse degenerative changes of the visualized lumbar spine. There is disc space narrowing spondylosis vacuum phenomenon. At L2-3 there is vacuum phenomenon and broad disc bulge moderate neural foramina narrowing, moderate central stenosis. At L3-L4 there is a broad disc osteophyte moderate neural foraminal narrowing moderate central stenosis. There is vacuum phenomenon at L4-L5 with moderate neural foraminal narrowing mild to moderate central stenosis. At L5-S1 there is disc space narrowing moderate neural foramina narrowing. Minimal central stenosis. CT/Abdomen/Pelvis without Cont IMPRESSION: Bilateral renal atrophy bilateral renal cortical thinning. Left-sided double-J stent. No hydronephrosis. Distended fluid-filled appearance of the stomach with postoperative change. Diverticulosis no diverticulitis. Advanced degenerative change in the thoracolumbar spine. Electronically Signed: Marj Hatfield MD at 3:27 EDT Tel , Service support ,
== END ==
PROVIDERS: PCP Nurse Practitioner; Referring Provider Urology; Visit Provider Urology
DX: N20.0 Calculus of kidney (principal)
CPT/HCPCS: 74176

== ENCOUNTER 2021-04-25 16:00 | Day surgery (SDC) | payer MEDICARE, SELFPAY ==
[2021-04-25 16:38] VITALS: BP 112/62; PULSE 67; RESP 16; TEMP 36.6; O2SAT 97; BMI 54.6
[2021-04-25 17:50] LABS: INR Fingerstick 2.6; Prothrombin Time Fingerstick 28.9 SEC (11.9-14.4)
[2021-04-25 18:09] LABS: International Normalized Ratio 2.6; Prothrombin Time (Protime)PT. 26.6 SECONDS (11.7-14.9)
[2021-04-25 18:11] LABS: Bedside Glucose 101 mg/dL (70-110)
[2021-04-25] MEDS: Lactated Ringers 1,000 ML 15 ML IV (21:10)
[2021-04-25 22:22] VITALS: BP 112/62; BP 124/57; PULSE 70; RESP 18; TEMP 36.5; O2SAT 97
--- NOTE | 2021-04-25 22:23 | PCM.DC ---
Discharge Instructions Diet Discharge Diet: No restrictions Activity Discharge Activity: Return to Normal Activity May resume sexual activity in: No Restrictions Dressing / Incision Call your doctor if you observe: Fever of 101 or Higher, Inability to urinate, Inability to have a bowel movement and Uncontrolled pain Follow Up Care Please Follow Up With: Chioma Johnson MD When: 1 week for stent removal Test Results: Test results from this visit will be discussed in further detail at your follow-up appointment, if applicable. Discharge Plan Admission Attending Provider: Chioma Johnson Primary Care Provider: Cynthia Campbell NP Discharge Orders/Prescriptions Prescriptions: Continued Atenolol 25 MG tablet 25 mg PO DAILY RF: 0 bupropion HCl 150 MG tablet sustained-release 12 hr 300 mg PO DAILY RF: 0 famotidine 40 MG tablet 40 mg PO BID RF: 0 warfarin 1 MG tablet 5 mg PO DAILY RF: 0 hydrocodone-acetaminophen [Vicodin] 1 EACH tablet 1 tab PO Q4H PRN PRN (Reason: Pain) RF: 0 Losartan Potassium 100 MG tablet 100 mg PO DAILY RF: 0 oxycodone-acetaminophen 1 TABLET tablet 2 tab PO Q8H PRN PRN (Reason: Pain) 7 Days Qty: 20 RF: 0 cephalexin 500 MG capsule 500 mg PO Q12 3 Days Qty: 6 RF: 0 Referrals / Follow Up: Cynthia Campbell NP, EMBOSSING PRESS OPERATOR APPRENTICE-C [Primary Care Provider] - Disposition Disposition (needs filled in before D/C Order can be placed): Home, Self Care
--- NOTE | 2021-04-25 22:27 | PCM.OPRPT ---
Problems Associated Problem List Diagnoses (1) Left renal stone: (2) Retained ureteral stent: Report of Operation Date of Procedure: 04/25/21 Pre-Operative Diagnosis: Left renal calculus, retained ureteral stent Post-Operative Diagnosis: Same, Josselinese Surgery/Procedure Performed:: Cystoscopy, left ureteroscopy, holmium laser lithotripsy, stone basket extraction, left ureteral stent change Surgeon: Chioma Johnson Type of Anesthesia: General Specimen's removed: Left ureteral stones Description of Procedure: The patient is a 70-year-old female who underwent a left ureteral stent insertion with renal shockwave lithotripsy approximately 3 to [address] revealed no significant evidence of ureteral calculi and the stent was attempted to be removed in the office today. I was unable to completely remove the stent and felt as if it were stuck on stone in the distal ureter. She now presents for surgical intervention with removal of her stent, laser lithotripsy and stent reinsertion. Informed consent was obtained. The patient was taken to the operating room placed on the operating room table. Anesthesia monitored the head, neck, airway, IV access and vital signs throughout the case. Once anesthesia was apparently administered the patient was placed into dorsal lithotomy position was prepped and draped in usual sterile fashion. At this time the stent was gently tugged on and easily was removed. The cystoscope was inserted through the urethra under direct visualization into the urinary bladder. Upon entry into the bladder there were multiple stone fragments visible within the bladder. A 0.035 Glidewire was then easily passed into the left ureteral orifice and curled in the renal pelvis. Ureteroscopy was performed and access to the renal pelvis was obtained with the flexible ureteroscope. Multiple stone fragments were identified in the distal ureter. The semirigid ureteroscope was then used along with a 270 ?m laser fiber and the fragments were broken into smaller pieces. A stone basket was used to retrieve the stones from the ureter. When all of the stones were removed, the 0.035 Glidewire was used for placement of a 6 Martin[place] 24 cm JJ stent. The stent had good positioning in the renal pelvis as well as the urinary bladder. The patient's bladder was emptied along with all of the stone fragments which were sent for pathologic analysis. Patient was then awakened and taken to the recovery room in good condition. There were no complications during this procedure. Grafts/Implants Used: 6 x 24 JJ stent Complications None Admit VTE Documentation VTE Present on Admission: No VTE Pharm Prophylaxis ordered?: Yes
[2021-04-25 22:30] VITALS: BP 105/44; BP 112/62; PULSE 65; RESP 16; O2SAT 98
[2021-04-25 22:41] VITALS: BP 112/62; BP 144/76; PULSE 65; RESP 16; O2SAT 97
[2021-04-25 23:02] VITALS: BP 112/62; BP 128/91; PULSE 58; RESP 16; TEMP 36; O2SAT 100
[2021-04-25 23:15] VITALS: BP 112/62
[2021-05-02 14:16] LABS: Source Left Ureter
== END 2021-04-25 23:16 | disposition home or self-care (01) ==
LOC: SDC 16:02 → AC 16:12
PROVIDERS: Anesthesiology; PCP Nurse Practitioner; Visit Provider Urology
PROC: 0TJ98ZZ Inspection of Ureter, Via Natural or Artificial Opening Endoscopic (ICD-10-PCS; CPT 52352; principal; 2021-04-25 21:20)
DX: N20.0 Calculus of kidney (principal); M19.90 Unspecified osteoarthritis, unspecified site; F32.A Depression, unspecified; D68.51 Activated protein C resistance; K21.9 Gastro-esophageal reflux disease without esophagitis; E78.00 Pure hypercholesterolemia, unspecified; I10 Essential (primary) hypertension; G25.81 Restless legs syndrome; N39.46 Mixed incontinence; G47.30 Sleep apnea, unspecified; Z86.718 Personal history of other venous thrombosis and embolism; Z79.899 Other long term (current) drug therapy; Z79.01 Long term (current) use of anticoagulants; Z96.0 Presence of urogenital implants; Z87.891 Personal history of nicotine dependence
CPT/HCPCS: 00918; 52356; 36416; 76000; 82360; 82962; 85610; 87426; J7120; C1769; C2617

== ENCOUNTER → 2022-04-06 | Outpatient (CLI) | payer MEDICARE, SELFPAY ==
--- NOTE | 2022-04-06 12:39 | ECHOCS_ITS ---
Reason For Study: Fatigue Procedure This was a 2D Doppler, Color Flow transthoracic echocardiogram. The study was technically difficult. Contrast injection was performed. Exam performed in department. Left Ventricle Based upon the 2D echocardiographic and contrast enhanced images obtained there appears to be grossly normal left ventricular size, wall motion, and systolic function. The estimated ejection fraction is 55 %. No evidence for diastolic dysfunction. Right Ventricle Based upon the 2D echocardiographic images obtained appears to be grossly normal right ventricular size and systolic function. Atria Normal left atrium. Normal right atrium. No doppler evidence for ASD. Mitral Valve There is no mitral annular calcification. Normal mitral valve. Tricuspid Valve Normal tricuspid valve. Aortic Valve Trisinus/trileaflet aortic valve. Moderate focal aortic valve calcification. Pulmonic Valve The pulmonic valve is not well visualized. Great Vessels Normal sized aortic root. Pericardium/Pleural No pericardial effusion. Medication 22 gauge I.V. with prn adaptor inserted into right arm. Diluted definity 1.5ml given slow IV push to enhance endocardial definition. MMode/2D Measurements & Calculations LVIDd: 4.4 cm IVSd: 1.2 cm Ao root diam: 3.4 cm LVIDs: 3.2 cm LVPWd: 0.99 cm FS: 26.5 % LAV(MOD-bp): 51.2 ml LVAd ap4: 26.8 cm2 SV(MOD-sp4): 40.9 ml LAV(MOD-bp) Indexed: 23.4 ml/m2 LVLd ap4: 7.6 cm LAV(MOD-sp2): 35.1 ml EDV(MOD-sp4): 78.3 ml LAV(MOD-sp4): 65.5 ml EDV(sp4-el): 80.9 ml LVAs ap4: 17.2 cm2 LVLs ap4: 6.5 cm ESV(MOD-sp4): 37.5 ml ESV(sp4-el): 38.2 ml EF(MOD-sp4): 52.2 % EF(sp4-el): 52.8 % SV(sp4-el): 42.7 ml LA A4 area: 21.6 cm2 LA dimension(2D): 4.3 cm RA A4 area: 17.2 cm2 Doppler Measurements & Calculations MV E max mark: 46.7 cm/sec Lat Peak E' Mark: 5.1 cm/sec Med Peak E' Mark: 4.8 cm/sec MV A max mark: 87.4 cm/sec E/E' lat: 9.2 E/E' med: 9.8 MV E/A: 0.53 LV V1 max: 79.8 cm/sec PA V2 max: 100.6 cm/sec LV V1 max P.5 mmHg PA V2 mean: 70.8 cm/sec ECHO/Echo Complete W/ Contrast Interpretation Summary The study was technically difficult. Contrast injection was performed. Based upon the 2D echocardiographic and contrast enhanced images obtained there appears to be grossly normal left ventricular size, wall motion, and systolic function. The estimated ejection fraction is 55 %. Moderate focal aortic valve calcification. No evidence for diastolic dysfunction. Ordering Physician: Mindi Soto Referring Physician: Mindi Soto Performed By: Pete Schmid RCS
== END | disposition home or self-care (01) ==
LOC: CVS 12:37
PROVIDERS: PCP Nurse Practitioner Family; Referring Provider Nurse Practitioner Family; Visit Provider Nurse Practitioner Family
DX: R94.31 Abnormal electrocardiogram [ECG] [EKG] (principal); R53.83 Other fatigue
CPT/HCPCS: 93306; Q9957; A4216; C8929

== ENCOUNTER 2022-06-29 16:50 | Emergency (ER) | payer MEDICARE, SELFPAY ==
[2022-06-29 16:51] VITALS: BP 152/93; PULSE 80; RESP 17; TEMP 36.4; O2SAT 99; BMI 52.0
--- NOTE | 2022-06-29 17:34 | CT_ITS ---
INDICATION: Pain EXAMINATION: CT ABDOMEN AND PELVIS WITHOUT CONTRAST - CT Abdomen And Pelvis W/O Contrast Injection TECHNIQUE: Helically acquired images were obtained of the abdomen and pelvis without oral or IV contrast. A radiation dose optimization technique was used for this scan. IV Contrast dosage and agent: None. Oral contrast: None. COMPARISON: April 19, 2021 FINDINGS: LOWER CHEST: Lung bases are clear. Small calcified hilar nodes. Heart is normal in size and there is multivessel coronary artery calcification. Small hiatal hernia noted. LIVER: Homogeneous. No focal mass. GALLBLADDER AND BILIARY TREE: Gallbladder not visualized which may be consistent with ectomy. . No intra- or extrahepatic biliary ductal dilation. PANCREAS: No focal cystic or solid mass. SPLEEN: Normal size without focal cystic or solid mass. ADRENAL GLANDS: No nodules. KIDNEYS AND URETERS: Kidneys are small and there is multi focal cortical scarring bilaterally. There are multiple nonobstructing left renal calculi.. No hydronephrosis. No definitive evidence for renal mass although exam limited without contrast. PERITONEUM: No ascites or free air. No other fluid collection. BOWEL: Appendix not visualized consistent with appendectomy.. Postsurgical changes status post bariatric surgery.. No focal inflammatory change. LYMPH NODES: No enlarged mesenteric or retroperitoneal lymph nodes. VESSELS: Atherosclerotic changes of the aorta without evidence for aneurysm. URINARY BLADDER: There is a tiny focal calcification layering along the dependent portion of the bladder possibly due to recently passed stone or bladder wall calcification.. REPRODUCTIVE ORGANS: No pelvic masses. ABDOMINAL WALL: Small umbilical hernia containing fat. BONES: Lumbar spine demonstrates severe scoliosis and degenerative change No lytic or blastic abnormality. CT/Abdomen/Pelvis without Cont IMPRESSION: Multiple nonobstructing left renal calculi. Postsurgical changes status post cholecystectomy, appendectomy and stapling of the stomach. No evidence for renal obstruction. Cannot definitively exclude recently passed calculus in the bladder versus tiny focal wall calcification. Electronically Signed: Francisco Sumner MD at 18:33 EST ,
--- NOTE | 2022-06-29 17:35 | EDS_ITS ---
HPI HPI - GI History of Present Illness Chief Complaint: Abd Pain Narrative Narrative: 71-year-old female past medical history of previous ureterolithiasis, presents with left flank pain that she has had for 1 week. While she states its been there for about a week, her son states that its been 2-3. She states that she is having hematuria. She denies any problems with bowel movements or blood in her stool. She states that the hematuria is so severe, that she woke up with blood on her bed and a small amount the other day. They relate history that they had problems with 2 kidney stones that required lithotripsy and stenting. states that when they went to remove the stent, that a fragment of a large stone got caught between that and the ureter and may have caused damage. She does take warfarin for factor V Leiden deficiency. She states that her pain got worse today, and there was more abdominal pressure, and urinary urgency. Her pain is all on the left side and described as a pressure sensation. She denies any fevers or chills, but became nauseated secondary to pain, and vomited twice. Her nausea has now improved, and she states that her pain has subsided significantly. [facility] Medical History Arthritis Back pain CPAP (continuous positive airway pressure) dependence Depression DVT (deep venous thrombosis) Easy bruising Excessive bleeding Factor V Leiden Former smoker Gastric reflux High cholesterol History of edema History of epidural anesthesia History of irregular heartbeat History of stress test History of ulceration Hypertension Left renal stone Restless legs Retained ureteral stent Sleep apnea Wears dentures Wears glasses Home Medications Atenolol 25 mg PO DAILY 02/25/15 [History Last Taken 03/27/21] Losartan Potassium 100 mg PO DAILY 02/25/15 [History Last Taken 03/27/21] bupropion HCl 150 mg tablet,12 hr sustained-release 300 mg PO DAILY 02/25/15 [History Last Taken Unknown] famotidine 40 mg tablet 40 mg PO BID 02/25/15 [History Last Taken 03/27/21] hydrocodone 5 mg-acetaminophen 300 mg tablet (Vicodin) 1 tab PO Q4H PRN PRN Pain 02/25/15 [History Last Taken Unknown] warfarin 1 mg tablet 5 mg PO DAILY 02/25/15 [History Last Taken 03/21/21] cephalexin 500 mg capsule 500 mg PO Q12 post-operative 3 days #6 CAPSULES 04/25/21 [Rx Last Taken Unknown] oxycodone-acetaminophen 5 mg-325 mg tablet 2 tab PO Q8H PRN PRN Pain 7 days #20 tabs 04/25/21 [Rx Last Taken Unknown] Allergy/AdvReac Type Severity Reaction Status Date / Time egg Allergy Nausea Verified 06/29/22 16:50 nitrofurantoin Allergy Other Verified 06/29/22 16:50 macrocrystalline [From Macrodantin] Penicillins [PCN] Allergy Rash Verified 06/29/22 16:50 Surgical History History of carpal tunnel surgery of left wrist History of carpal tunnel surgery of right wrist History of gastric stapling Hx laparoscopic cholecystectomy Hx of appendectomy Hx of right knee surgery Hx of shoulder replacement Hx of total knee replacement Social History Smoking Status: Former smoker ROS ROS ED ROS Narrative Constitutional: No fever, no chills. HEENT: No sore throat. No neck pain. No loss of vision. No rhinorrhea. Cardiovascular: No chest pain. No palpitations. No pedal edema. Respiratory: No cough, no shortness of breath. Abdominal: No abdominal pain. Improving nausea. At least 2 episodes of vomiting today. Genitourinary: No dysuria. Positive hematuria. Positive left flank pain. Urinary urgency and pressure sensation. Musculoskeletal: No myalgias. No arthralgias. Neurologic: No headaches. No dizziness. No lightheadedness. Skin: No rash. No change in color. Psychiatric: No depression. No anxiety. EXAM Physical Exam Const Vital Signs: 06/29/22 16:51 06/29/22 19:00 06/29/22 19:00 Temperature 97.6 F L 97.9 F Temperature Source Temporal Temporal Pulse Rate 80 69 69 Respiratory Rate 17 18 18 Blood Pressure 152/93 H 131/61 H Blood Pressure Mean 112 84 Pulse Ox 99 100 100 Oxygen Delivery Method Room Air Room Air Room Air MDM MDM MDM Narrative Medical decision making narrative: In the differential diagnosis is urinary tract infection versus ureterolithiasis. Comprehensive work-up was pursued. I will obtain CT imaging without contrast. She was bolused normal saline 1 L intravenously. Although she states her nausea has resolved, she will be given ondansetron should it return. I will obtain a CBC, BMP, and INR along with urinalysis to check for infection. I reviewed her laboratory work. She has a normal white count of 9.6, hemoglobin normal at 14.4, platelet count normal at 265. INR is therapeutic at 2.0. Review of her be MP shows chloride elevated at 109 with BUN of 34 and a creatinine of 1.58. Glucose appropriately elevated at 120 with a normal anion gap of 8. Urinalysis does show 5-10 RBCs consistent with microscopic hematuria. Her gross hematuria has resolved based on the sample sitting on the countertop. However, there are 10-20 WBCs but 0+ bacteria. In discussion with the patient, through shared decision making, this will be sent for culture, and antibiotic will be called in should it be positive for bacterial growth. At this point in time, she states that she has also passed a kidney stone and has it saved in a urinalysis cup. I reviewed the CT, and there is a small calcification near the bladder wall consistent with past ureteral stone versus bladder wall calcification. I am leaning more towards passed kidney stone. There are also multiple kidney stone/renal stones on the left. She was told that these do not usually cause pain unless they move or descend into the ureter. She feels markedly improved on repeat examination at approximately 1955. At this point in time, I feel she can be discharged safely home to follow-up with her urologist. Return instructions to the emergency department were reviewed. Disposition is discharged home in stable condition. Lab Data Attestation: I reviewed the patient's lab results. Labs: Laboratory Results - last 24 hr 06/29/22 06/29/22 06/29/22 18:00 18:00 18:00 WBC 9.6 RBC 4.73 Hgb 14.4 Hct 42.7 MCV 90.3 MCH 30.4 MCHC 33.7 RDW Std Deviation 41.0 RDW Coeff of Aime 12.4 Plt Count 265 MPV 9.0 Immature Gran % (Auto) 0.600 Neut % (Auto) 75.2 H Lymph % (Auto) 16.6 L [place] % (Auto) 6.9 Eos % (Auto) 0.3 Baso % (Auto) 0.4 Absolute Neuts (auto) 7.2 Absolute Lymphs (auto) 1.60 Nucleated RBC % 0 PT 22.4 H INR 2.0 Sodium 141 Potassium 4.2 Chloride 109 H Carbon Dioxide 24.0 Anion Gap 8 BUN 34 H Creatinine 1.58 H Estim Creat Clear Calc 23.93 Est GFR (MDRD) Af Amer 41 L Est GFR (MDRD) Non-Af 34 L BUN/Creatinine Ratio 21.5 H Glucose 120 H Calcium 9.3 Urine Color Urine Clarity Urine pH Ur Specific [place] Urine Protein Urine Glucose (UA) Urine Ketones Urine Occult Blood Urine Nitrite Urine Bilirubin Urine Urobilinogen Ur Leukocyte Esterase Urine RBC Urine WBC Ur Squamous Epith Cells Urine Bacteria Urine Mucus Urine Yeast 06/29/22 19:00 WBC RBC Hgb Hct MCV MCH MCHC RDW Std Deviation RDW Coeff of Aime Plt Count MPV Immature Gran % (Auto) Neut % (Auto) Lymph % (Auto) [place] % (Auto) Eos % (Auto) Baso % (Auto) Absolute Neuts (auto) Absolute Lymphs (auto) Nucleated RBC % PT INR Sodium Potassium Chloride Carbon Dioxide Anion Gap BUN Creatinine Estim Creat Clear Calc Est GFR (MDRD) Af Amer Est GFR (MDRD) Non-Af BUN/Creatinine Ratio Glucose Calcium Urine Color Yellow Urine Clarity Clear Urine pH 5.0 Ur Specific [place] 1.025 Urine Protein 15 H Urine Glucose (UA) Normal Urine Ketones Negative Urine Occult Blood 250 H Urine Nitrite Negative Urine Bilirubin Negative Urine Urobilinogen Normal Ur Leukocyte Esterase 100 H Urine RBC 5-10 SEEN Urine WBC 10-25 SEEN Ur Squamous Epith Cells 0-5 SEEN Urine Bacteria 0 SEEN Urine Mucus 0 SEEN Urine Yeast 1+ Radiography Diagnostic Testing: Clinical Impression(s) from Imaging Studies Abdomen/Pelvis CT 06/29/22 17:34 IMPRESSION: Multiple nonobstructing left renal calculi. Postsurgical changes status post cholecystectomy, appendectomy and stapling of the stomach. No evidence for renal obstruction. Cannot definitively exclude recently passed calculus in the bladder versus tiny focal wall calcification. Electronically Signed: Francisco Sumner MD at 18:33 EST , Discharge Plan Triage Chief Complaint: Abd Pain ED Provider: Bg Starr Dx/Rx/DC Orders Clinical Impression: Left flank pain, Kidney stone, Hematuria, Pyuria Instructions: ED Hematuria, ED Kidney Stone, Passed Prescriptions: No Action Atenolol 25 MG tablet 25 mg PO DAILY Label Comments: bupropion HCl 150 MG tablet sustained-release 12 hr 300 mg PO DAILY Label Comments: famotidine 40 MG tablet 40 mg PO BID Label Comments: warfarin 1 MG tablet 5 mg PO DAILY hydrocodone-acetaminophen [Vicodin] 1 EACH tablet 1 tab PO Q4H PRN PRN (Reason: Pain) Losartan Potassium 100 MG tablet 100 mg PO DAILY Label Comments: oxycodone-acetaminophen 1 TABLET tablet 2 tab PO Q8H PRN PRN (Reason: Pain) 7 Days Qty: 20 0RF cephalexin 500 MG capsule 500 mg PO Q12 3 Days Qty: 6 0RF Primary Care Provider: Mindi Soto Referrals: Chioma Johnson MD [Med Staff - Active Staff] - As Needed Mindi Soto, BARIATRIC SURGEON-C [Primary Care Provider] - Activity Restrictions/Additional Instructions: You have passed a kidney stone. Your pain should be resolving. However, there are stones in your left kidney that could cause more left flank pain should they move or distended. Your urine had white cells in it. This was sent for culture. They will call you if antibiotics are needed. Return with increased pain, fever, new or worsening symptoms Disposition Disposition: Home, Self Care
[2022-06-29] MEDS: 0.9% Normal Saline 1,000 ML 1000 ML IV (17:57)
[2022-06-29 18:07] LABS: Absolute Neutrophil Count 7.2 X10^3/uL (2.0-7.7); Basophil# 0.04 X10^3/uL; Basophil% 0.4 % (0-1); Eosinophil# 0.03 X10^3/uL; Eosinophils% 0.3 % (0-5); Hematocrit 42.7 % (37-47); Hemoglobin 14.4 g/dL (12.0-15.0); Lymphocyte % 16.6 % (19-41); Mean Corp Hgb Conc 33.7 g/dL (32-36); Mean Corpuscular Hgb 30.4 pg (27.0-32.0); Mean Corpuscular Volume 90.3 fL (81-99); Monocyte# 0.66 X10^3/uL; Monocyte% 6.9 % (0-10); NRBC Flagged by Analyzer 0 % (0-5); Neutrophil # 7.22 X10^3/uL (2.7-7.7); Neutrophil % 75.2 % (47-70); Platelet Count 265 K/mm3 (150-450); RBC Distribution Width CV 12.4 % (11.6-14.6); Red Blood Count 4.73 M/mm3 (4.2-5.4); White Blood Count 9.6 K/mm3 (4.4-11.0)
[2022-06-29 18:19] LABS: Prothrombin Time (Protime)PT. 22.4 SECONDS (11.7-14.9)
[2022-06-29 18:20] LABS: Anion Gap 8 (5-15); BUN 34 mg/dL (7-18); BUN/Creat Ratio 21.5 RATIO (10-20); Calcium,Total 9.3 mg/dL (8.5-10.1); Chloride 109 mmol/L (98-107); Creatinine, Serum 1.58 mg/dL (0.55-1.02); EST Glomerular Filtration Rate 34 mL/min (>60); Est Glom Filt Rate - Afr Amer 41 mL/min (>60); Estimated Creatinine Clearance 23.93 ml/min; Glucose 120 mg/dL (74-106); Potassium 4.2 mmol/L (3.5-5.1); Sodium Level 141 mmol/L (136-145)
[2022-06-29 19:00] VITALS: BP 131/61; PULSE 69; RESP 18; TEMP 36.6; O2SAT 100
[2022-06-29 19:13] LABS: Bacteria 0 SEEN /hpf (None Seen); Mucous, Urine 0 SEEN /hpf (<or=2+)
[2022-06-29 19:32] LABS: Color, Urine Yellow (Yellow); Glucose, Dipstick Normal (Normal); Ketone-Dipstick Negative (Negative); Leukocyte Esterase-Dipstick 100 /ul (Negative); Nitrite-Dipstick Negative (Negative); Occult Blood-Urine 250 /ul (Negative); Protein-Dipstick 15 mg/dl (Negative); Specific Gravity, Urine 1.025 (1.002-1.030); Urine Bilirubin Dipstick Negative (Negative); Urine Clarity Clear (Clear); Urine Urobilinogen Normal (Normal)
[2022-06-29 19:38] LABS: White Blood Cells 10-25 SEEN /hpf (0-5)
[2022-06-29 19:39] LABS: Red Blood Cells-Urine 5-10 SEEN /hpf (0-5)
[2022-06-29 19:40] LABS: Squamous Epithelial Cells - UA 0-5 SEEN /hpf (5-10); Yeast-Urine 1+ /hpf (None Seen)
== END 2022-06-29 20:04 | disposition home or self-care (01) ==
PROVIDERS: Emergency Provider Emergency Medicine; PCP Nurse Practitioner Family; Referring Provider Emergency Medicine; Visit Provider Emergency Medicine
DX: R10.9 Unspecified abdominal pain (principal); N20.0 Calculus of kidney; R82.81 Pyuria; G47.30 Sleep apnea, unspecified; Z86.718 Personal history of other venous thrombosis and embolism; Z79.01 Long term (current) use of anticoagulants; Z87.891 Personal history of nicotine dependence
CPT/HCPCS: 74176; 80048; 81001; 85025; 85610; 87077; 87086; 87088; 87186; 96360; 96361; 99283; J7030; A4216

== ENCOUNTER → 2022-07-20 | Outpatient (CLI) | payer MEDICARE, SELFPAY ==
--- NOTE | 2022-07-20 14:10 | US_ITS ---
HISTORY: Uterine bleeding. TECHNIQUE: Transabdominal and transvaginal pelvic ultrasound was performed with garza scale and color Doppler evaluation. 77 images. COMPARISON: CT 06/29/2022. FINDINGS: UTERUS: 7.3 x 3.6 x 5.1 cm with heterogeneous echotexture. 1.3 x 1.4 x 1.4 cm round heterogeneous lesion in the uterus. 1.7 x 1.8 x 2 cm complex cystic lesion in the cervix with internal vascularity. ENDOMETRIAL THICKNESS: 7 mm with trace fluid. OVARIES: Not visualized. No adnexal masses FREE FLUID: None. URINARY BLADDER: Unremarkable at 98 cc. US/Pelvic (Non ) IMPRESSION: 1.4 cm uterine leiomyoma. Trace hemorrhage in the endometrial cavity with mild thickening of the endometrial complex. Recommend follow-up or correlation with endometrial biopsy to assess for endometrial lesion in a patient with postmenopausal bleeding. 2 cm complex cystic mass in the cervix which may represent a cervical leiomyoma with cystic degeneration or small cervical neoplasm. Electronically Signed: Alma Lozada MD at 10:53 EST ,
--- NOTE | 2022-07-20 14:10 | US_ITS ---
HISTORY: Uterine bleeding. TECHNIQUE: Transabdominal and transvaginal pelvic ultrasound was performed with garza scale and color Doppler evaluation. 77 images. COMPARISON: CT 06/29/2022. FINDINGS: UTERUS: 7.3 x 3.6 x 5.1 cm with heterogeneous echotexture. 1.3 x 1.4 x 1.4 cm round heterogeneous lesion in the uterus. 1.7 x 1.8 x 2 cm complex cystic lesion in the cervix with internal vascularity. ENDOMETRIAL THICKNESS: 7 mm with trace fluid. OVARIES: Not visualized. No adnexal masses FREE FLUID: None. URINARY BLADDER: Unremarkable at 98 cc. US/Transvaginal Non- IMPRESSION: 1.4 cm uterine leiomyoma. Trace hemorrhage in the endometrial cavity with mild thickening of the endometrial complex. Recommend follow-up or correlation with endometrial biopsy to assess for endometrial lesion in a patient with postmenopausal bleeding. 2 cm complex cystic mass in the cervix which may represent a cervical leiomyoma with cystic degeneration or small cervical neoplasm. Electronically Signed: Alma Lozada MD at 10:53 EST ,
== END | disposition home or self-care (01) ==
LOC: US 14:07
PROVIDERS: PCP Nurse Practitioner Family; Referring Provider Urology; Visit Provider Urology
DX: N93.9 Abnormal uterine and vaginal bleeding, unspecified (principal)
CPT/HCPCS: 76830; 76856

== ENCOUNTER → 2022-07-26 | Outpatient (CLI) | payer MEDICARE, SELFPAY ==
--- NOTE | 2022-07-26 | EMB_PTH ---
PATIENT: KATHERINE MATHIS LOC: [facility] U#:[id number] AGE/SX: 71/F ROOM: RE07/26/[address]: Dr. Nell Evans MD : [id number] BED: DIS: 07/26/2022 SPEC #: [id number] RECD: 07/27/22 08:06 STATUS: KAYKAY REGulshan #: [id number] GIACOMO: 07/26/22 00:[address]: Nell Evans DEPT: SURGICAL PATHOLOGY RECD BY: Genna Villanueva ENTERED: 07/27/22 08:07 SP TYPE: ENDOM BX/C RITA DR: LUCINA JeterC Tissues: Endometrium, NOS Procedures: Surgery Specimen Level IV HEADER OPERATION: Endometrial biopsy PRE-OP DIAGNOSIS: Abnormal uterine bleeding TISSUE SUBMITTED: Endometrial biopsy MICROSCOPIC DIAGNOSIS Endometrial biopsy: Inactive endometrium with focal cystic changes. See comment. ITA:juliana 07/30/2022 COMMENT A few of the fragments are polypoid appearing and may represent fragments of polyp. Clinical correlation and appropriate follow up are necessary. Case has been reviewed in consultation with Dr. Blanco who concurs with the above diagnosis. IDC:AM MICROSCOPIC DESCRIPTION Slides are reviewed. GROSS DESCRIPTION Received is one container labeled with the patient's name and not further designated. The specimen consists of multiple irregular fragments of mucoid pink-dominique soft tissue that in aggregate measure 2 x 2 x 0.1 cm. The specimen is totally submitted in one cassette. / JORGE L:juliana 07/27/2022 TC:5 CPT: 15958
[2022-08-03 17:20] LABS: HPV APTIMA, High Risk Negative (Negative)
== END | disposition home or self-care (01) ==
PROVIDERS: PCP Nurse Practitioner Family; Visit Provider Obstetrics & Gynecology
DX: Z12.4 Encounter for screening for malignant neoplasm of cervix (principal); N93.9 Abnormal uterine and vaginal bleeding, unspecified
CPT/HCPCS: 87624; 88175; 88305; G0145

== ENCOUNTER → 2023-10-04 | Outpatient (CLI) | payer MEDICARE, SELFPAY ==
--- NOTE | 2023-10-04 12:28 | BD_ITS ---
STUDY: DUAL ENERGY X-RAY ABSORPTIOMETRY / DXA REASON FOR EXAM: Female, 72 years old. 627.8Menopausal postmenopausal BONE DENSITY REASON FOR EXAM TECHNIQUE: Bone Mineral Density (BMD) measurements of lumbar spine and bilateral hips were obtained. COMPARISON: Comparison is made with prior study January 24, 2021. FINDINGS: Lumbar Spine (L1-L4): g/cm2 (1.378) / T-score (3.1) / Z-score (5.5) Findings are suggestive of normal bone density with a low fracture risk. Left Femur Total: g/cm2 (1.001) / T-score (0.5) / Z-score (2.3) Left Femoral Neck: g/cm2 (0.656) / T-score (-1.7) / Z-score (0.3) Right Femur Total: g/cm2 (1.011) / T-score (0.6) / Z-score (2.3) Right Femoral Neck: g/cm2 (0.767) / T-score (-0.7) / Z-score (1.3) The T-Scores on the most recent prior examination were: Lumbar Spine (L1-L4): There has been improvement of bone density since the previous examination. Left Femur Total: which represents a worsening of 11.3%. Right Femur Total: which represents a worsening of 0.6%. BD/Dexa Bone Density Study IMPRESSION: The patient is considered osteopenic as outlined below according to World Anand Organization (WHO) criteria with a moderate fracture risk. There has been worsening of bone density since the previous examination. Reference Information: The T-score is the number of standard deviations above or below the standard which is normal for young adults at their peak bone mineral density. The World Health Organization (WHO) interprets the T-scores as follows: Above -1 Normal bone density Between -1 and -2.5 Osteopenia Equal to / or below -2.5 Osteoporosis As a practical clinical guideline, osteopenia may be graded as follows: Mild -1 through -1.5 Moderate -1.6 through -2.0 Severe -2.1 through -2.4 The Z-score is the number of standard deviations above or below age-matched controls. A Z-score of less than -1.5 would be considered abnormal. References: 1. NIH Osteoporosis and Related Bone Diseases www osteo.org 2. International Society for Clinical Densitometry www iscd.org 3. National Osteoporosis Foundation www nof.org Electronically Signed: Hi Atkinson MD at 8:34 EDT ,
--- NOTE | 2023-10-04 12:28 | BI_ITS ---
MAMMOGRAPHY - BILATERAL SCREENING REASON FOR EXAM: Female, 72 years old. Routine annual screening examination. PERTINENT HISTORY: Sister with breast cancer. TECHNIQUE: Digital bilateral breast leandro (3D mammographic acquisition) in the CC and MLO projections. 2-D mediolateral oblique (MLO) and craniocaudad (CC) views of both breasts were obtained. CAD: Full Field Digital Mammography with Computer Added Detection was performed. COMPARISON: Comparison is made with prior study January 24, 2021 and September 26, 2017. FINDINGS: Breast Composition: The breasts are almost entirely fatty. There are no dominant masses or suspicious calcifications. No other significant abnormalities are identified. There has been no significant change since the prior study. BI/SCRN MAMM (CAD)W/LEANDRO BILAT IMPRESSION: Stable bilateral screening mammogram. Yearly follow-up mammogram recommended. (A) ASSESSMENT CATEGORY: BIRADS Category 1: Negative. A letter regarding these results will be sent to the patient by the facility within 30 days. Approximately 10% of breast cancers are not detected by mammography. A normal mammogram should not delay biopsy of a clinically suspicious abnormality. [id number] Electronically Signed: Hi Atkinson MD at 9:03 EDT ,
== END | disposition home or self-care (01) ==
PROVIDERS: PCP Nurse Practitioner Family; Referring Provider Nurse Practitioner Family; Visit Provider Nurse Practitioner Family
DX: Z78.0 Asymptomatic menopausal state (principal); Z12.31 Encounter for screening mammogram for malignant neoplasm of breast
CPT/HCPCS: 77063; 77067; 77080

== ENCOUNTER → 2024-01-10 | Outpatient (CLI) | payer MEDICARE, SELFPAY ==
[2024-01-10 14:45] LABS: International Normalized Ratio 1.6; Prothrombin Time (Protime)PT. 18.5 SECONDS (11.7-14.9)
== END | disposition home or self-care (01) ==
LOC: LABSPEC 14:26
PROVIDERS: PCP Nurse Practitioner Family; Referring Provider Nurse Practitioner Family; Visit Provider Nurse Practitioner Family
DX: D68.2 Hereditary deficiency of other clotting factors (principal)
CPT/HCPCS: 85610

== ENCOUNTER → 2024-01-15 | Outpatient (CLI) | payer MEDICARE, SELFPAY ==
[2024-01-15 15:29] LABS: International Normalized Ratio 1.7; Prothrombin Time (Protime)PT. 19.7 SECONDS (11.7-14.9)
== END | disposition home or self-care (01) ==
LOC: LABSPEC 15:05
PROVIDERS: PCP Nurse Practitioner Family; Referring Provider Nurse Practitioner Family; Visit Provider Nurse Practitioner Family
DX: D68.2 Hereditary deficiency of other clotting factors (principal)
CPT/HCPCS: 85610

== ENCOUNTER → 2024-08-07 | Outpatient (CLI) | payer MEDICARE, SELFPAY ==
--- NOTE | 2024-08-07 13:04 | US_ITS ---
PROCEDURE: ULTRASOUNDS OF THE KIDNEYS AND BLADDER REASON FOR EXAM: CHRONIC KIDNEY DISEASE STAGE 3. TECHNIQUE: REAL-TIME GRAYSCALE AND COLOR-FLOW IMAGING WAS PERFORMED ALONG WITH ROUTINE IMAGE DOCUMENTATION. COMPARISON: CT abdomen and pelvis dated 06/29/2022. FINDINGS: Normal renal sizes, parenchymal thicknesses, and echotextures. Lobulated renal margins. No hydronephrosis. No cysts or large solid renal masses. Left renal calcifications measuring 1.3 x 1.0 x 0.8 cm, 1.0 x 1.1 x 0.7 cm, and 1.0 x 1.0 x 0.5 cm. RIGHT Kidney Size: 9.9 x 5.0 x 4.7 cm Volume: 123 mL Cortical Thickness (if discernible): 0.9 (>6mm is normal) LEFT Kidney Size: 11.6 x 5.3 x 4.3 Volume: 136 mL Cortical Thickness (if discernible): 0.9 cm (>6mm is normal) US/Kidney and Bladder IMPRESSION: Left non-obstructing nephrolithiasis. Right kidney smaller than the left. Suboptimal distention of the urinary bladder. Reading Location: [facility]
[2024-08-07 13:19] LABS: Hematocrit 42.3 % (37-47); Mean Corp Hgb Conc 33.1 g/dL (32-36); Mean Corpuscular Hgb 30.4 pg (27.0-32.0); Mean Corpuscular Volume 91.8 fL (81-99); Platelet Count 254 K/mm3 (150-450); RBC Distribution Width CV 12.9 % (11.6-14.6); RBC Distribution Width SD 43.2 fl (35.1-43.9); Red Blood Count 4.61 M/mm3 (4.2-5.4); White Blood Count 7.3 K/mm3 (4.4-11.0)
[2024-08-07 14:14] LABS: PTHIN 49.1 pg/mL (18.4-80.1)
[2024-08-07 14:17] LABS: Vitamin D,25 Hydroxy 64.9 ng/mL
[2024-08-07 14:23] LABS: Albumin, Serum 3.4 g/dL (3.2-5.0); BUN 29 mg/dL (7-18); BUN/Creat Ratio 20.4 RATIO (10-20); Calcium,Total 9.5 mg/dL (8.5-10.1); Chloride 109 mmol/L (98-107); Creatinine, Serum 1.42 mg/dL (0.55-1.02); EST Glomerular Filtration Rate 38 mL/min (>60); Est Glom Filt Rate - Afr Amer 46 mL/min (>60); Glucose 99 mg/dL (74-106); Phosphorus 3.3 mg/dL (2.5-4.9); Potassium 4.4 mmol/L (3.5-5.1); Sodium Level 140 mmol/L (136-145)
[2024-08-07 14:53] LABS: Protein, Urine (Random) 15.8 mg/dL (<11.9); Protein:Creat Ratio 186 mg/g CRE (0-200)
== END | disposition home or self-care (01) ==
PROVIDERS: PCP Nurse Practitioner Family; Referring Provider Internal Medicine Nephrology; Visit Provider Internal Medicine Nephrology
DX: N18.31 Chronic kidney disease, stage 3a (principal)
CPT/HCPCS: 36415; 76770; 80069; 82306; 82570; 83970; 84156; 85027

== ENCOUNTER → 2024-08-21 | Outpatient (CLI) | payer MEDICARE, SELFPAY ==
--- NOTE | 2024-08-21 13:19 | STRESSREP_ITS ---
Stress Test Report Date: 08/21/2024 Procedure: Pharmacologic stress nuclear imaging study Indications: Coronary artery disease Consent: Per the patient Procedure: The patient underwent pharmacologic (Regadenoson 0.4mg ) evaluation with a peak heart rate of 77 beats per minute (53%predicted maximal heart rate) and a peak blood pressure of 144/72 mmHg. The baseline ECG demonstrated sinus rhythm with poor R wave progression across the anterior leads. The peak pharmacologic ECG demonstrated no ischemic changes. There were no cardiac dysrhythmias pretest, during pharmacologic infusion, or recovery. There was no complaint of chest discomfort during pharmacologic infusion or recovery. The patient was injected with 14.3 millicuries of technetium 99m Cardiolite and subsequently rest SPECT Cardiolite nuclear imaging was obtained in the horizontal long, vertical long, and short axis views. The patient underwent pharmacologic (Regadenoson) evaluation. The patient was injected with 44.7 millicuries of technetium 99m Cardiolite and subsequently stress SPECT Cardiolite nuclear imaging was obtained in the horizontal long, vertical long, and short axis views. A gated Cardiolite study at peak stress was obtained. The examination was stopped secondary to completion of protocol. Rest and stress SPECT Cardiolite nuclear imaging status post realignment, normalization, and attenuation correction demonstrate no fixed or reversible perfusion defects. There is end systolic thickening and brightening. The gated Cardiolite study demonstrates myocardial thickening and inward wall motion. The reported LVEF is 74%. Impression: 1. Pharmacologic (Regadenoson) evaluation 2. Peak pharmacologic ECG with no ischemic changes. 3. There were no cardiac dysrhythmias pretest, during pharmacologic infusion, or recovery. 5. Rest and stress SPECT Cardiolite nuclear imaging demonstrate relative uniform tracer uptake and myocardial perfusion appearing within normal limits. 6. The gated Cardiolite study reports an LVEF of 74%. This note was generated with [employer] software. It may contain incorrect words, spelling, and punctuation that were not noted in checking the note before signing.
== END | disposition home or self-care (01) ==
PROVIDERS: PCP Nurse Practitioner Family; Referring Provider Internal Medicine Cardiovascular Disease; Visit Provider Internal Medicine Cardiovascular Disease
DX: R93.1 Abnormal findings on diagnostic imaging of heart and coronary circulation (principal); I25.10 Atherosclerotic heart disease of native coronary artery without angina pectoris
CPT/HCPCS: 78452; 93017; A9500; A4216; J2785